=== PATIENT | female | born 1985 | race Caucasian/White ===

== ENCOUNTER 2016-03-01 12:58 | Emergency (ER) | payer MEDICAID, OTHER ==
[2016-03-01] MEDS ORDERED: KETOROLAC 30 MG/ML VIAL (J1885) As Ordered ONE (14:35)
--- NOTE | 2016-03-01 14:48 | REP ---
Chest x-ray: Two views. History: Cough and chest pain . Comparison study: No comparisons . Findings: The lungs are well inflated and free of infiltrate. The pleural angles are sharp. The heart size is normal. Pulmonary vasculature is not increased. No significant bony abnormality is seen. Impression: Negative chest x-ray. Signed by Samuel Bernardo MD 03/01/2016 02:38 P
--- NOTE | 2016-03-01 15:13 | EDDOCDS ---
Nurse's Notes [facility] Name: Agnes Luque Age: 30 yrs Sex: Female : 1985 Arrival Date: 03/01/2016 Time: 12:58 Bed I2 / M2 Private MD: NO PRIMARY PHYSICIAN, . Diagnosis: Acute upper respiratory infection, unspecified-viral;Other chest pain-chest wall pain Presentation: 03/01 13:00 Presenting complaint: Patient states: Congested cough for 2 weeks, right side rib pain dwg with cough or deep breath. Also having sore throat. Adult Sepsis Screening: The patient does not have new or worsening altered mentation. Patient's respiratory rate is less than 22. Systolic blood pressure is greater than 100. Patient has a qSOFA score of 0- Negative Sepsis Screen. Suicide/Homicide risk assessment- the patient denies having any suicidal and/or homicidal ideations and does not present with any other emotional, behavioral or mental health complaints. 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 Transition of care: patient was not received from another setting of care. 13:00 Acuity: HELIO Level 5 dwg 13:00 Method Of Arrival: Walkin/Carried/Asstd dwg Triage Assessment: 13:01 General: Appears in no apparent distress. Pain: Pain currently is 10 out of 10 on a dwg pain scale. HIV screening NA for this visit Offered previously. 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 none - PMHx: none; - PSHx: Appendectomy; - Social history: Smoking status: Patient states former smoker of tobacco. No barriers to communication noted, The patient speaks fluent Indian. - Family history: Not pertinent. - : The pt / caregiver states he / she is not on anticoagulants. Home medication list is obtained from the patient. - Exposure Risk Screening:: None identified. Screenin:10 Screening information is obtained from the patient. Fall risk: No risks identified. kc3 Assistance ADL's: requires no assistance with activities of daily living. Abuse/DV Screen: The patient / caregiver reports he/she is: not in a situation that causes fear, pain or injury. Nutritional screening: No deficits noted. Advance Directives: Currently, there is no health care proxy. home support is adequate. Assessment: 13:50 General: Appears in no apparent distress, Behavior is appropriate for age, cooperative. dsf Pain: Location: right rib area Pain currently is 10 out of 10 on a pain scale. Quality of pain is described as sharp. Neurological: Level of Consciousness is awake, alert, Oriented to person, place, time. EENT: Reports nasal congestion since 2 weeks ago. Cardiovascular: Capillary refill < 3 seconds Heart tones S1 S2 present. Respiratory: Airway is patent Respiratory effort is even, unlabored, Respiratory pattern is regular, symmetrical, Breath sounds are clear bilaterally. Reports pain with respiration. GI: Abdomen is non- distended Bowel sounds present X 4 quads. Abd is soft and non tender X 4 quads. Derm: Skin is pink, warm & dry. 15:10 General: Appears in no apparent distress, comfortable, Behavior is appropriate for age, kc3 cooperative. Pain: Location: right rib area Pain currently is 10 out of 10 on a pain scale. Neurological: Level of Consciousness is awake, alert, obeys commands, Oriented to person, place, time. Respiratory: Respiratory effort is even, unlabored. Derm: Skin is pink, warm & dry. Vital Signs: 12:59 BP 149 / 91; Pulse 104; Resp 16; Temp 96.3(O); Pulse Ox 100% ; Weight 79.38 kg; Height cmb 5 ft. 4 in. (162.56 cm); Pain 10/10; 15:11 BP 148 / 91; Pulse 85; Resp 18; Temp 98.5(O); Pulse Ox 97% on R/A; Pain 10/10; kc3 12:59 Body Mass Index 30.04 (79.38 kg, 162.56 cm) cmb Vitals: 12:59 Log In Time: March 01, 2016 at 12:57. cmb 14:29 Strep Screen is obtained and tested: Negative, a GATSNEG culture is ordered in [facility] and sent. ED Course: 12:59 Patient visited by Janki Marte. cmb 12:59 NO PRIMARY PHYSICIAN, . is Private Physician. cmb 12:59 Patient moved to Waiting cmb 13:00 Patient moved to Pre RCE cmb 13:01 Triage Initiated dwg 13:29 Meli Conner FNP is PHCP. le 13:30 Patient moved to I1 / M1 srm 13:31 Patient moved to I2 / M2 srm 13:52 Patient visited by Ijeoma Lucas RN. dsf 14:15 Patient visited by Meli Conner FNP. le 14:40 GATS (NEGATIVE STREP SCREEN) Sent. dsf 14:53 [facility] is Referral Physician. le 14:53 Chest, 2 View (pa\E\lat) Returned. EDMS 15:05 [facility] Payment Agreement was scanned into [employer] and attached to record. mm15 15:12 The patient / caregiver is instructed regarding the plan of care and ED course. kc3 15:12 No IV's were initiated during this patient's visit. No procedures done that require kc3 assistance. Administered Medications: 14:40 Drug: ketorolac 60 mg [ketorolac 30 mg/mL (1 mL) injection solution (2 mL)] Route: IM; dsf Site: right gluteus; Order Results: Radiology Order: Chest, 2 View (pa\E\lat) Test: Chest, 2 View (pa\E\lat) REASON FOR EXAMINATION: Cough;Chest Pain; Chest x-ray: Two views.; ; History: Cough and chest pain .; ; Comparison study: No comparisons .; ; Findings: The lungs are well inflated and free of infiltrate. The pleural; angles are sharp. The heart size is normal. Pulmonary vasculature is not; increased. No significant bony abnormality is seen.; ; Impression:; ; Negative chest x-ray.; ; ; Signed by; Samuel Bernardo MD 03/01/2016 02:38 P; Outcome: 14:53 Discharge ordered by Provider. le 15:11 Discharge Assessment: Patient awake, alert and oriented x 3. No cognitive and/or kc3 functional deficits noted. Patient verbalized understanding of disposition instructions. patient administered narcotics - no. The following High Risk Discharge criteria are identified: None. Discharged to home. Condition: stable. Discharge instructions given to patient, Instructed on discharge instructions, follow up and referral plans. medication usage, Demonstrated understanding of instructions, medications, Pt was receptive of discharge instructions/ teaching. Prescriptions given X 1. No special radiology studies were completed. Property :Personal belongings accompany Pt. 15:12 Patient left the ED. kc3 Signatures: [facility] Rico Bowling RN RN dwg Michelson, Staci, RN RN Meli Jiménez, PEER HEALTH PROMOTER PEER HEALTH PROMOTER Ijeoma Burgos,RN RN Janki Hutchison Marlynn mm15 Melita Gordon,RN RN kc3 MTDD
--- NOTE | 2016-03-01 15:13 | EDDOCDS ---
Physician Documentation [facility] Name: Agnes Luque Age: 30 yrs Sex: Female : 1985 Arrival Date: 03/01/2016 Time: 12:58 Bed I2 / M2 Private MD: NO PRIMARY PHYSICIAN, . Disposition: 03/01/16 14:53 Discharged to Home/Self Care. Impression: Acute upper respiratory infection, unspecified - viral, Other chest pain - chest wall pain. - Condition is Stable. - Discharge Instructions: Costochondritis, Upper Respiratory Infection, Adult, Viral Infections. - Prescriptions for Naprosyn 500 mg Oral Tablet - take 1 tablet by ORAL route 2 times per day take with food; 30 tablet. - Medication Reconciliation, Local Pharmacy Hours form. - Follow up: [facility]; When: Call to arrange an appointment; Reason: Recheck today's complaints, Continuance of care, To establish care. - Problem is an ongoing problem. - Symptoms have improved. - Notes: Use the naprosyn, routinely, for chest wall pain. You can safely, also, use Tylenol as needed Continue to use Muciness or robitussin to keep secretions thinned out Return to the ED for fever, shortness of breath or any other concerns Historical: - Allergies: no known allergies; - Home Meds: 1. none - PMHx: none; - PSHx: Appendectomy; - Social history: Smoking status: Patient states former smoker of tobacco. No barriers to communication noted, The patient speaks fluent Korean. - Family history: Not pertinent. - : The pt / caregiver states he / she is not on anticoagulants. Home medication list is obtained from the patient. - Exposure Risk Screening:: None identified. 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 4 in. (162.56 cm); Pain 10/10; 15:11 BP 148 / 91; Pulse 85; Resp 18; Temp 98.5(O); Pulse Ox 97% on R/A; Pain 10/10; kc3 12:59 Body Mass Index 30.04 (79.38 kg, 162.56 cm) cmb MDM: 14:15 Strep Screen, Nursing ordered. le 14:17 Chest, 2 View (pa\E\lat) Ordered. EDMS 14:22 ketorolac 60 mg IM once ordered. le 14:30 GATS (NEGATIVE STREP SCREEN) Ordered. EDMS 15:04 Financial registration complete. mm15 15:05 [facility] Payment Agreement was scanned into [employer] and attached to record. mm15 Administered Medications: 14:40 Drug: ketorolac 60 mg [ketorolac 30 mg/mL (1 mL) injection solution (2 mL)] Route: IM; dsf Site: right gluteus; Signatures: Dispatcher [employer] EDMS Rico Bowling, RN RN Meli Ortiz FNP FNP le McGrath, Marlynn mm15 Melita Gordon,RN RN isis3 Ijeoma Lucas RN dsf The chart was reviewed and I authenticate all verbal orders and agree with the evaluation and treatment provided.Attachments: 15:05 [facility] Payment Agreement mm15 MTDD
--- NOTE | 2016-03-03 16:13 | EDDOCDS ---
Physician Documentation [facility] Name: Agnes Luque Age: 30 yrs Sex: Female : 1985 Arrival Date: 03/01/2016 Time: 12:58 Bed I2 / M2 Private MD: NO PRIMARY PHYSICIAN, . Disposition: 03/01/16 14:53 Discharged to Home/Self Care. Impression: Acute upper respiratory infection, unspecified - viral, Other chest pain - chest wall pain. - Condition is Stable. - Discharge Instructions: Costochondritis, Upper Respiratory Infection, Adult, Viral Infections. - Prescriptions for Naprosyn 500 mg Oral Tablet - take 1 tablet by ORAL route 2 times per day take with food; 30 tablet. - Medication Reconciliation, Local Pharmacy Hours form. - Follow up: [facility]; When: Call to arrange an appointment; Reason: Recheck today's complaints, Continuance of care, To establish care. - Problem is an ongoing problem. - Symptoms have improved. - Notes: Use the naprosyn, routinely, for chest wall pain. You can safely, also, use Tylenol as needed Continue to use Muciness or robitussin to keep secretions thinned out Return to the ED for fever, shortness of breath or any other concerns Historical: - Allergies: no known allergies; - Home Meds: 1. none - PMHx: none; - PSHx: Appendectomy; - Social history: Smoking status: Patient states former smoker of tobacco. No barriers to communication noted, The patient speaks fluent Lao. - Family history: Not pertinent. - : The pt / caregiver states he / she is not on anticoagulants. Home medication list is obtained from the patient. - Exposure Risk Screening:: None identified. 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 4 in. (162.56 cm); Pain 10/10; 15:11 BP 148 / 91; Pulse 85; Resp 18; Temp 98.5(O); Pulse Ox 97% on R/A; Pain 10/10; kc3 12:59 Body Mass Index 30.04 (79.38 kg, 162.56 cm) cmb MDM: 14:15 Strep Screen, Nursing ordered. le 14:17 Chest, 2 View (pa\E\lat) Ordered. EDMS 14:22 ketorolac 60 mg IM once ordered. le 14:30 GATS (NEGATIVE STREP SCREEN) Ordered. EDMS 15:04 Financial registration complete. mm15 15:05 [facility] Agreement was scanned into [employer] and attached to record. 15 03/02 10:59 T-Sheet-- Draft Copy was scanned into [employer] and attached to record. gb Administered Medications: 03/01 14:40 Drug: ketorolac 60 mg [ketorolac 30 mg/mL (1 mL) injection solution (2 mL)] Route: IM; dsf Site: right gluteus; Signatures: Dispatcher [employer] EDRico Sosa, RN RN dwg Maribel Abdullahi, Reg Reg gb Meli Conner, BEER BREWER BEER BREWER Ana Martinez mm15 Melita Gordon RN RN kc3 Ijeoma Lucas RN dsf The chart was reviewed and I authenticate all verbal orders and agree with the evaluation and treatment provided.Attachments: 15:05 [facility] Payment Agreement 15 03/02 10:59 T-Sheet-- Draft Copy gb Chart Complete MTDD
--- NOTE | 2016-03-03 16:13 | EDDOCDS ---
Nurse's Notes [facility] Name: Agnes Luque Age: 30 yrs Sex: Female : 1985 Arrival Date: 03/01/2016 Time: 12:58 Bed I2 / M2 Private MD: NO PRIMARY PHYSICIAN, . Diagnosis: Acute upper respiratory infection, unspecified-viral;Other chest pain-chest wall pain Presentation: 03/01 13:00 Presenting complaint: Patient states: Congested cough for 2 weeks, right side rib pain dwg with cough or deep breath. Also having sore throat. Adult Sepsis Screening: The patient does not have new or worsening altered mentation. Patient's respiratory rate is less than 22. Systolic blood pressure is greater than 100. Patient has a qSOFA score of 0- Negative Sepsis Screen. Suicide/Homicide risk assessment- the patient denies having any suicidal and/or homicidal ideations and does not present with any other emotional, behavioral or mental health complaints. Status: Patient is not a ambulatory service representative or dependent. Transition of care: patient was not received from another setting of care. 13:00 Acuity: HELOI Level 5 dwg 13:00 Method Of Arrival: Walkin/Carried/Asstd dwg Triage Assessment: 13:01 General: Appears in no apparent distress. Pain: Pain currently is 10 out of 10 on a dwg pain scale. HIV screening NA for this visit Offered previously. 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 none - PMHx: none; - PSHx: Appendectomy; - Social history: Smoking status: Patient states former smoker of tobacco. No barriers to communication noted, The patient speaks fluent Ukrainian. - Family history: Not pertinent. - : The pt / caregiver states he / she is not on anticoagulants. Home medication list is obtained from the patient. - Exposure Risk Screening:: None identified. Screenin:10 Screening information is obtained from the patient. Fall risk: No risks identified. kc3 Assistance ADL's: requires no assistance with activities of daily living. Abuse/DV Screen: The patient / caregiver reports he/she is: not in a situation that causes fear, pain or injury. Nutritional screening: No deficits noted. Advance Directives: Currently, there is no health care proxy. home support is adequate. Assessment: 13:50 General: Appears in no apparent distress, Behavior is appropriate for age, cooperative. dsf Pain: Location: right rib area Pain currently is 10 out of 10 on a pain scale. Quality of pain is described as sharp. Neurological: Level of Consciousness is awake, alert, Oriented to person, place, time. EENT: Reports nasal congestion since 2 weeks ago. Cardiovascular: Capillary refill < 3 seconds Heart tones S1 S2 present. Respiratory: Airway is patent Respiratory effort is even, unlabored, Respiratory pattern is regular, symmetrical, Breath sounds are clear bilaterally. Reports pain with respiration. GI: Abdomen is non- distended Bowel sounds present X 4 quads. Abd is soft and non tender X 4 quads. Derm: Skin is pink, warm & dry. 15:10 General: Appears in no apparent distress, comfortable, Behavior is appropriate for age, kc3 cooperative. Pain: Location: right rib area Pain currently is 10 out of 10 on a pain scale. Neurological: Level of Consciousness is awake, alert, obeys commands, Oriented to person, place, time. Respiratory: Respiratory effort is even, unlabored. Derm: Skin is pink, warm & dry. Vital Signs: 12:59 BP 149 / 91; Pulse 104; Resp 16; Temp 96.3(O); Pulse Ox 100% ; Weight 79.38 kg; Height cmb 5 ft. 4 in. (162.56 cm); Pain 10/10; 15:11 BP 148 / 91; Pulse 85; Resp 18; Temp 98.5(O); Pulse Ox 97% on R/A; Pain 10/10; kc3 12:59 Body Mass Index 30.04 (79.38 kg, 162.56 cm) cmb Vitals: 12:59 Log In Time: March 01, 2016 at 12:57. cmb 14:29 Strep Screen is obtained and tested: Negative, a GATSNEG culture is ordered in [facility] and sent. ED Course: 12:59 Patient visited by Janki Marte. cmb 12:59 NO PRIMARY PHYSICIAN, . is Private Physician. cmb 12:59 Patient moved to Waiting cmb 13:00 Patient moved to Pre RCE cmb 13:01 Triage Initiated dwg 13:29 Meli Conner FNP is PHCP. le 13:30 Patient moved to I1 / M1 srm 13:31 Patient moved to I2 / M2 srm 13:52 Patient visited by Ijeoma Lucas RN. dsf 14:15 Patient visited by Meli Conner FNP. le 14:40 GATS (NEGATIVE STREP SCREEN) Sent. dsf 14:53 [facility] is Referral Physician. le 14:53 Chest, 2 View (pa\E\lat) Returned. EDMS 15:05 [facility] Payment Agreement was scanned into [employer] and attached to record. mm15 15:12 The patient / caregiver is instructed regarding the plan of care and ED course. kc3 15:12 No IV's were initiated during this patient's visit. No procedures done that require kc3 assistance. 16:11 Patient name changed from Agnes\S\V\S\Rebel\S\ to Agnes\S\Evelyn\S\Rebel. EDMS 03/02 10:59 T-Sheet-- Draft Copy was scanned into [employer] and attached to record. gb Administered Medications: 03/01 14:40 Drug: ketorolac 60 mg [ketorolac 30 mg/mL (1 mL) injection solution (2 mL)] Route: IM; dsf Site: right gluteus; Order Results: Lab Order: GATS (NEGATIVE STREP SCREEN); SPEC'M 03/01/16 14:39 Test: GATS CULTURE (NEG STREP SCR); Value: GATS RESULT NEGATIVE FOR STREP PYOGENES (GROUP A); Status: F Radiology Order: Chest, 2 View (pa\E\lat) Test: Chest, 2 View (pa\E\lat) REASON FOR EXAMINATION: Cough;Chest Pain; Chest x-ray: Two views.; ; History: Cough and chest pain .; ; Comparison study: No comparisons .; ; Findings: The lungs are well inflated and free of infiltrate. The pleural; angles are sharp. The heart size is normal. Pulmonary vasculature is not; increased. No significant bony abnormality is seen.; ; Impression:; ; Negative chest x-ray.; ; ; Signed by; Samuel Bernardo MD 03/01/2016 02:38 P; Outcome: 14:53 Discharge ordered by Provider. le 15:11 Discharge Assessment: Patient awake, alert and oriented x 3. No cognitive and/or kc3 functional deficits noted. Patient verbalized understanding of disposition instructions. patient administered narcotics - no. The following High Risk Discharge criteria are identified: None. Discharged to home. Condition: stable. Discharge instructions given to patient, Instructed on discharge instructions, follow up and referral plans. medication usage, Demonstrated understanding of instructions, medications, Pt was receptive of discharge instructions/ teaching. Prescriptions given X 1. No special radiology studies were completed. Property :Personal belongings accompany Pt. 15:12 Patient left the ED. kc3 Signatures: Dispatcher Med[employer] EDRico Sosa, RN RN Mer Hatch RN RN [facility] Maribel Abdullahi, Reg Reg gb eMli Conner, HARBOR PILOT HARBOR PILOT Ijeoma BurgosRN RN Janki Hutchison Marlynn mm15 Melita Gordon,RN RN kc3 Chart Complete MTDD
--- NOTE | 2016-03-03 16:13 | EDDOCDS ---
Physician Documentation [facility] Name: Agnes Luque Age: 30 yrs Sex: Female : 1985 Arrival Date: 03/01/2016 Time: 12:58 Bed I2 / M2 Private MD: NO PRIMARY PHYSICIAN, . Disposition: 03/01/16 14:53 Discharged to Home/Self Care. Impression: Acute upper respiratory infection, unspecified - viral, Other chest pain - chest wall pain. - Condition is Stable. - Discharge Instructions: Costochondritis, Upper Respiratory Infection, Adult, Viral Infections. - Prescriptions for Naprosyn 500 mg Oral Tablet - take 1 tablet by ORAL route 2 times per day take with food; 30 tablet. - Medication Reconciliation, Local Pharmacy Hours form. - Follow up: [facility]; When: Call to arrange an appointment; Reason: Recheck today's complaints, Continuance of care, To establish care. - Problem is an ongoing problem. - Symptoms have improved. - Notes: Use the naprosyn, routinely, for chest wall pain. You can safely, also, use Tylenol as needed Continue to use Muciness or robitussin to keep secretions thinned out Return to the ED for fever, shortness of breath or any other concerns Historical: - Allergies: no known allergies; - Home Meds: 1. none - PMHx: none; - PSHx: Appendectomy; - Social history: Smoking status: Patient states former smoker of tobacco. No barriers to communication noted, The patient speaks fluent Chinese. - Family history: Not pertinent. - : The pt / caregiver states he / she is not on anticoagulants. Home medication list is obtained from the patient. - Exposure Risk Screening:: None identified. 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 4 in. (162.56 cm); Pain 10/10; 15:11 BP 148 / 91; Pulse 85; Resp 18; Temp 98.5(O); Pulse Ox 97% on R/A; Pain 10/10; kc3 12:59 Body Mass Index 30.04 (79.38 kg, 162.56 cm) cmb MDM: 14:15 Strep Screen, Nursing ordered. le 14:17 Chest, 2 View (pa\E\lat) Ordered. EDMS 14:22 ketorolac 60 mg IM once ordered. le 14:30 GATS (NEGATIVE STREP SCREEN) Ordered. EDMS 15:04 Financial registration complete. mm15 15:05 [facility] Payment Agreement was scanned into [employer] and attached to record. 15 03/02 10:59 T-Sheet-- Draft Copy was scanned into [employer] and attached to record. gb Administered Medications: 03/01 14:40 Drug: ketorolac 60 mg [ketorolac 30 mg/mL (1 mL) injection solution (2 mL)] Route: IM; dsf Site: right gluteus; Signatures: Dispatcher [employer] EDRico Sosa, RN RN dwg Maribel Abdullahi, Reg Reg gb Meli Conner, BEHAVIORAL SCIENCES DEPARTMENT CHAIR BEHAVIORAL SCIENCES DEPARTMENT CHAIR Ana Martinez mm15 Melita Gordon RN RN kc3 Ijeoma Lucas RN dsf The chart was reviewed and I authenticate all verbal orders and agree with the evaluation and treatment provided.Attachments: 15:05 [facility] Payment Agreement 15 03/02 10:59 T-Sheet-- Draft Copy gb Chart Complete MTDD
== END 2016-03-01 15:12 | disposition home or self-care (01) ==
LOC: M ED 12:58
DX: J06.9 Acute upper respiratory infection, unspecified (principal); R07.89 Other chest pain; Z87.891 Personal history of nicotine dependence

== ENCOUNTER 2016-03-06 19:19 | Emergency (ER) | payer OTHER ==
[2016-03-06] MEDS ORDERED: NORCO, ANEXSIA 5/325MG TABLET (HYDROcodone/ACETAMINOPHEN) As Ordered ONE (22:08)
[2016-03-06] MEDS ORDERED: METHOCARBAMOL 500 MG TAB As Ordered ONE ×2 (22:50→22:54)
--- NOTE | 2016-03-06 23:01 | EDDOCDS ---
Physician Documentation [facility] Name: Agnes Luque Age: 30 yrs Sex: Female : 1985 Arrival Date: 03/06/2016 Time: 19:19 Bed PR Private MD: NO PRIMARY PHYSICIAN, . Disposition: 03/06/16 22:36 Discharged to Home/Self Care. Impression: Unspecified superficial injuries of right front wall of thorax - strain of muscle. - Condition is Stable. - Discharge Instructions: Chest Wall Pain, Muscle Strain. - Prescriptions for [place] 5- 325 mg Oral Tablet - take 1 tablet by ORAL route every 6 hours As needed MDD: 4 tabs; 20 tablet. Robaxin 500 mg Oral Tablet - take 2 tablet by ORAL route every 6 hours As needed; 40 tablet. - Work Release Form - 2 day, Medication Reconciliation, Local Pharmacy Hours form. - Follow up: Private Physician; When: Call to arrange an appointment; Reason: Recheck today's complaints, Continuance of care. - Problem is new. - Symptoms are unchanged. Historical: - Allergies: No known drug Allergies; - Home Meds: 1. Zofran (as hydrochloride) 4 mg Oral tab as needed (Last dose: 03/06/2016 19:00) - PMHx: none; - PSHx: Appendectomy; - Social history: Smoking status: Patient states was never smoker of tobacco. Patient uses marijuana, almost daily, No barriers to communication noted. - Family history: Not pertinent. - : The pt / caregiver states he / she is not on anticoagulants. Home medication list is obtained from the patient. - Exposure Risk Screening:: None identified. 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 4 in. (162.56 cm) (R); Pain 9/10; 22:58 BP 121 / 72; Pulse 74; Resp 16; Temp 97.9(TE); Pulse Ox 98% on R/A; jo3 19:21 Body Mass Index 30.04 (79.38 kg, 162.56 cm) gr2 MDM: 22:01 HYDROcodone-acetaminophen 5 mg-325 mg 1 tabs PO once ordered. mo1 22:02 Rib Unilat W/PA Chest Only Ordered. EDMS 22:09 Financial registration complete. gb 22: [facility] Payment Agreement was scanned into [employer] and attached to record. gb 22:49 Methocarbamol 1 grams PO once ordered. mo1 Administered Medications: 22:10 Drug: HYDROcodone-acetaminophen 1 tabs [hydrocodone 5 mg-acetaminophen 325 mg tablet (1 jf3 tabs)] Route: PO; 22:58 Drug: Methocarbamol 1 grams [methocarbamol 500 mg tablet (2 tabs)] Route: PO; jo3 Signatures: Dispatcher [employer] EDMS Maribel Abdullahi, Jer Reg Carmelita Benton RN RN jo3 Debbie Gauthier RN RN [facility] Corby Butts PA PA mo1 Willis Mohan RN jf3 The chart was reviewed and I authenticate all verbal orders and agree with the evaluation and treatment provided.Attachments: 22:09 [facility] Payment Agreement gb MTDD
--- NOTE | 2016-03-06 23:01 | EDDOCDS ---
Nurse's Notes [facility] Name: Agnes Luque Age: 30 yrs Sex: Female : 1985 Arrival Date: 03/06/2016 Time: 19:19 Bed PR Private MD: NO PRIMARY PHYSICIAN, . Diagnosis: Unspecified superficial injuries of right front wall of thorax-strain of muscle Presentation: 03/06 19:44 Presenting complaint: Patient states: I've been sick and have a cough for about three [facility] weeks today when coughing felt something pull in ribs now in severe pain, was treated here last week for something similar. Adult Sepsis Screening: The patient does not have new or worsening altered mentation. Patient's respiratory rate is less than 22. Systolic blood pressure is greater than 100. Patient has a qSOFA score of 0- Negative Sepsis Screen. Suicide/Homicide risk assessment- the patient denies having any suicidal and/or homicidal ideations and does not present with any other emotional, behavioral or mental health complaints. 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 Transition of care: patient was not received from another setting of care. 19:44 Acuity: HELIO Level 4 [facility] 19:44 Method Of Arrival: Walkin/Carried/Asstd [facility] Triage Assessment: 19:48 General: Appears uncomfortable, Behavior is cooperative, crying. Pain: Location: [facility] anterior aspect of right lateral abdomen Pain currently is 10 out of 10 on a pain scale. HIV screening NA for this visit Offered previously. Respiratory: Airway is patent Respiratory effort is even, unlabored, Respiratory pattern is regular, symmetrical, Reports cough that is productive. Derm: Skin is pink, warm & dry. 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 Zofran (as hydrochloride) 4 mg Oral tab as needed (Last dose: 03/06/2016 19:00) - PMHx: none; - PSHx: Appendectomy; - Social history: Smoking status: Patient states was never smoker of tobacco. Patient uses marijuana, almost daily, No barriers to communication noted. - Family history: Not pertinent. - : The pt / caregiver states he / she is not on anticoagulants. Home medication list is obtained from the patient. - Exposure Risk Screening:: None identified. Screenin:58 Screening information is obtained from the patient. Fall risk: No risks identified. jo3 Assistance ADL's: requires no assistance with activities of daily living. Abuse/DV Screen: The patient / caregiver reports he/she is: not in a situation that causes fear, pain or injury. Nutritional screening: No deficits noted. Advance Directives: There is no active DNR order. home support is adequate. Assessment: 22:58 General: Appears uncomfortable, Behavior is appropriate for age, cooperative, pleasant. jo3 Neurological: No deficits noted. Level of Consciousness is awake, alert, Oriented to person, place, time. Respiratory: No deficits noted. Airway is patent Respiratory effort is even, unlabored. Derm: Skin is pink, warm & dry. Vital Signs: 19:21 BP 134 / 83; Pulse 99; Resp 18 S; Temp 96.4(O); Pulse Ox 98% on R/A; Weight 79.38 kg gr2 (R); Height 5 ft. 4 in. (162.56 cm) (R); Pain 9/10; 22:58 BP 121 / 72; Pulse 74; Resp 16; Temp 97.9(TE); Pulse Ox 98% on R/A; jo3 19:21 Body Mass Index 30.04 (79.38 kg, 162.56 cm) gr2 Vitals: 19:21 Log In Time: March 06, 2016 at 19:21. gr2 ED Course: 19:20 Patient visited by Emil Dueñas. gr2 19:20 Patient moved to Waiting gr2 19:21 NO PRIMARY PHYSICIAN, . is Private Physician. gr2 19:22 Patient visited by Emil Dueñas. gr2 19:22 Patient moved to Pre RCE gr2 19:46 Triage Initiated cj 21:25 Patient moved to Triage 2 jo3 21:36 Corby Butts PA is PHCP. mo1 21:36 Silver Rich DO is Attending Physician. mo1 21:57 Patient visited by Corby Butts PA. mo1 22:04 Patient moved to Radiology reyna 22:09 [facility] Payment Agreement was scanned into [employer] and attached to record. gb 22:09 Patient moved to TR1 jf3 22:10 Patient moved to Radiology reyna 22:30 Patient moved to PR1 / 25 sew 22:58 The patient / caregiver is instructed regarding the plan of care and ED course. jo3 22:58 No IV's were initiated during this patient's visit. No procedures done that require jo3 assistance. Administered Medications: 22:10 Drug: HYDROcodone-acetaminophen 1 tabs [hydrocodone 5 mg-acetaminophen 325 mg tablet (1 jf3 tabs)] Route: PO; 22:58 Drug: Methocarbamol 1 grams [methocarbamol 500 mg tablet (2 tabs)] Route: PO; jo3 Order Results: There are currently no results for this order. Outcome: 22:36 Discharge ordered by Provider. mo1 23:00 Patient left the ED. jo3 Signatures: Jovanni Christianson Gloria, Carmelita GeeRN RN jo3 Debbie Gauthier RN RN [facility] Melinda Gomez Gainslee gr2 Corby Butts PA PA mo1 Willis Mohan,RN RN jf3 MTDD
--- NOTE | 2016-03-07 01:27 | REP ---
Clinical: Pain with cough . Technique: Frontal view of the chest with multiple views of the right hemithorax. Findings: Frontal view of the chest demonstrates no acute cardiopulmonary process. Multiple views of the right hemithorax demonstrates no obvious acute rib fracture or pathology. Impression: Normal right rib series Signed by Brian Rolon MD 03/07/2016 01:18 A
--- NOTE | 2016-03-09 00:01 | EDDOCDS ---
Physician Documentation [facility] Name: Agnes Luque Age: 30 yrs Sex: Female : 1985 Arrival Date: 03/06/2016 Time: 19:19 Bed PR Private MD: NO PRIMARY PHYSICIAN, . Disposition: 03/06/16 22:36 Discharged to Home/Self Care. Impression: Unspecified superficial injuries of right front wall of thorax - strain of muscle. - Condition is Stable. - Discharge Instructions: Chest Wall Pain, Muscle Strain. - Prescriptions for [place] 5- 325 mg Oral Tablet - take 1 tablet by ORAL route every 6 hours As needed MDD: 4 tabs; 20 tablet. Robaxin 500 mg Oral Tablet - take 2 tablet by ORAL route every 6 hours As needed; 40 tablet. - Work Release Form - 2 day, Medication Reconciliation, Local Pharmacy Hours form. - Follow up: Private Physician; When: Call to arrange an appointment; Reason: Recheck today's complaints, Continuance of care. - Problem is new. - Symptoms are unchanged. Historical: - Allergies: No known drug Allergies; - Home Meds: 1. Zofran (as hydrochloride) 4 mg Oral tab as needed (Last dose: 03/06/2016 19:00) - PMHx: none; - PSHx: Appendectomy; - Social history: Smoking status: Patient states was never smoker of tobacco. Patient uses marijuana, almost daily, No barriers to communication noted. - Family history: Not pertinent. - : The pt / caregiver states he / she is not on anticoagulants. Home medication list is obtained from the patient. - Exposure Risk Screening:: None identified. 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 4 in. (162.56 cm) (R); Pain 9/10; 22:58 BP 121 / 72; Pulse 74; Resp 16; Temp 97.9(TE); Pulse Ox 98% on R/A; jo3 19:21 Body Mass Index 30.04 (79.38 kg, 162.56 cm) gr2 MDM: 22:01 HYDROcodone-acetaminophen 5 mg-325 mg 1 tabs PO once ordered. mo1 22:02 Rib Unilat W/PA Chest Only Ordered. EDMS : Financial registration complete. gb : [facility] Payment Agreement was scanned into [employer] and attached to record. gb 22:49 Methocarbamol 1 grams PO once ordered. mo1 03/07 11:28 T-Sheet-- Draft Copy was scanned into [employer] and attached to record. gb Administered Medications: 03/06 22:10 Drug: HYDROcodone-acetaminophen 1 tabs [hydrocodone 5 mg-acetaminophen 325 mg tablet (1 jf3 tabs)] Route: PO; 22:58 Drug: Methocarbamol 1 grams [methocarbamol 500 mg tablet (2 tabs)] Route: PO; jo3 Signatures: Dispatcher [employer] EDMS Maribel Abdullahi, Jer Reg Carmelita Benton RN RN jo3 Debbie Gauthier RN RN [facility] Corby Butts PA PA mo1 Willis Mohan RN jf3 The chart was reviewed and I authenticate all verbal orders and agree with the evaluation and treatment provided.Attachments: 22: [facility] Payment Agreement gb 03/07 11:28 T-Sheet-- Draft Copy gb Chart Complete MTDD
--- NOTE | 2016-03-09 00:01 | EDDOCDS ---
Nurse's Notes [facility] Name: Agnes Luque Age: 30 yrs Sex: Female : 1985 Arrival Date: 03/06/2016 Time: 19:19 Bed PR Private MD: NO PRIMARY PHYSICIAN, . Diagnosis: Unspecified superficial injuries of right front wall of thorax-strain of muscle Presentation: 03/06 19:44 Presenting complaint: Patient states: I've been sick and have a cough for about three [facility] weeks today when coughing felt something pull in ribs now in severe pain, was treated here last week for something similar. Adult Sepsis Screening: The patient does not have new or worsening altered mentation. Patient's respiratory rate is less than 22. Systolic blood pressure is greater than 100. Patient has a qSOFA score of 0- Negative Sepsis Screen. Suicide/Homicide risk assessment- the patient denies having any suicidal and/or homicidal ideations and does not present with any other emotional, behavioral or mental health complaints. 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 Transition of care: patient was not received from another setting of care. 19:44 Acuity: HELIO Level 4 [facility] 19:44 Method Of Arrival: Walkin/Carried/Asstd [facility] Triage Assessment: 19:48 General: Appears uncomfortable, Behavior is cooperative, crying. Pain: Location: [facility] anterior aspect of right lateral abdomen Pain currently is 10 out of 10 on a pain scale. HIV screening NA for this visit Offered previously. Respiratory: Airway is patent Respiratory effort is even, unlabored, Respiratory pattern is regular, symmetrical, Reports cough that is productive. Derm: Skin is pink, warm & dry. 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 Zofran (as hydrochloride) 4 mg Oral tab as needed (Last dose: 03/06/2016 19:00) - PMHx: none; - PSHx: Appendectomy; - Social history: Smoking status: Patient states was never smoker of tobacco. Patient uses marijuana, almost daily, No barriers to communication noted. - Family history: Not pertinent. - : The pt / caregiver states he / she is not on anticoagulants. Home medication list is obtained from the patient. - Exposure Risk Screening:: None identified. Screenin:58 Screening information is obtained from the patient. Fall risk: No risks identified. jo3 Assistance ADL's: requires no assistance with activities of daily living. Abuse/DV Screen: The patient / caregiver reports he/she is: not in a situation that causes fear, pain or injury. Nutritional screening: No deficits noted. Advance Directives: There is no active DNR order. home support is adequate. Assessment: 22:58 General: Appears uncomfortable, Behavior is appropriate for age, cooperative, pleasant. jo3 Neurological: No deficits noted. Level of Consciousness is awake, alert, Oriented to person, place, time. Respiratory: No deficits noted. Airway is patent Respiratory effort is even, unlabored. Derm: Skin is pink, warm & dry. Vital Signs: 19:21 BP 134 / 83; Pulse 99; Resp 18 S; Temp 96.4(O); Pulse Ox 98% on R/A; Weight 79.38 kg gr2 (R); Height 5 ft. 4 in. (162.56 cm) (R); Pain 9/10; 22:58 BP 121 / 72; Pulse 74; Resp 16; Temp 97.9(TE); Pulse Ox 98% on R/A; jo3 19:21 Body Mass Index 30.04 (79.38 kg, 162.56 cm) gr2 Vitals: 19:21 Log In Time: March 06, 2016 at 19:21. gr2 ED Course: 19:20 Patient visited by Emil Dueñas. gr2 19:20 Patient moved to Waiting gr2 19:21 NO PRIMARY PHYSICIAN, . is Private Physician. gr2 19:22 Patient visited by Emil Dueñas. gr2 19:22 Patient moved to Pre RCE gr2 19:46 Triage Initiated cj 21:25 Patient moved to Triage 2 jo3 21:36 Corby Butts PA is PHCP. mo1 21:36 Silver Rich DO is Attending Physician. mo1 21:57 Patient visited by Corby Butts PA. mo1 22:04 Patient moved to Radiology reyna 22:09 [facility] Payment Agreement was scanned into [employer] and attached to record. gb 22:09 Patient moved to TR1 jf3 22:10 Patient moved to Radiology reyna 22:30 Patient moved to PR1 / 25 sew 22:58 The patient / caregiver is instructed regarding the plan of care and ED course. jo3 22:58 No IV's were initiated during this patient's visit. No procedures done that require jo3 assistance. 03/07 01:43 Rib Unilat W/PA Chest Only Returned. EDMS 11:28 T-Sheet-- Draft Copy was scanned into [employer] and attached to record. gb Administered Medications: 03/06 22:10 Drug: HYDROcodone-acetaminophen 1 tabs [hydrocodone 5 mg-acetaminophen 325 mg tablet (1 jf3 tabs)] Route: PO; 22:58 Drug: Methocarbamol 1 grams [methocarbamol 500 mg tablet (2 tabs)] Route: PO; jo3 Order Results: Radiology Order: Rib Unilat W/PA Chest Only Test: Rib Unilat W/PA Chest Only REASON FOR EXAMINATION: Cough; Clinical: Pain with cough .; ; Technique: Frontal view of the chest with multiple views of the right; hemithorax.; ; Findings:; Frontal view of the chest demonstrates no acute cardiopulmonary process.; Multiple views of the right hemithorax demonstrates no obvious acute rib fracture; or pathology.; ; Impression:; Normal right rib series; ; ; Signed by; Brian Rolon MD 03/07/2016 01:18 A; Outcome: 22:36 Discharge ordered by Provider. mo1 23:00 Patient left the ED. jo3 Signatures: Dispatcher [employer] EDAR Jovanni Christianson Gloria, Jer Reg Carmelita Benton RN RN jo3 Debbie GauthierRN RN Melinda Kim Gainslee 2 Corby Butts PA PA mo1 Willis Mohan,ANDRE RN jf3 Chart Complete MTDD
--- NOTE | 2016-03-09 00:01 | EDDOCDS ---
Physician Documentation [facility] Name: Agnes Luque Age: 30 yrs Sex: Female : 1985 Arrival Date: 03/06/2016 Time: 19:19 Bed PR Private MD: NO PRIMARY PHYSICIAN, . Disposition: 03/06/16 22:36 Discharged to Home/Self Care. Impression: Unspecified superficial injuries of right front wall of thorax - strain of muscle. - Condition is Stable. - Discharge Instructions: Chest Wall Pain, Muscle Strain. - Prescriptions for [place] 5- 325 mg Oral Tablet - take 1 tablet by ORAL route every 6 hours As needed MDD: 4 tabs; 20 tablet. Robaxin 500 mg Oral Tablet - take 2 tablet by ORAL route every 6 hours As needed; 40 tablet. - Work Release Form - 2 day, Medication Reconciliation, Local Pharmacy Hours form. - Follow up: Private Physician; When: Call to arrange an appointment; Reason: Recheck today's complaints, Continuance of care. - Problem is new. - Symptoms are unchanged. Historical: - Allergies: No known drug Allergies; - Home Meds: 1. Zofran (as hydrochloride) 4 mg Oral tab as needed (Last dose: 03/06/2016 19:00) - PMHx: none; - PSHx: Appendectomy; - Social history: Smoking status: Patient states was never smoker of tobacco. Patient uses marijuana, almost daily, No barriers to communication noted. - Family history: Not pertinent. - : The pt / caregiver states he / she is not on anticoagulants. Home medication list is obtained from the patient. - Exposure Risk Screening:: None identified. 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 4 in. (162.56 cm) (R); Pain 9/10; 22:58 BP 121 / 72; Pulse 74; Resp 16; Temp 97.9(TE); Pulse Ox 98% on R/A; jo3 19:21 Body Mass Index 30.04 (79.38 kg, 162.56 cm) gr2 MDM: 22:01 HYDROcodone-acetaminophen 5 mg-325 mg 1 tabs PO once ordered. mo1 22:02 Rib Unilat W/PA Chest Only Ordered. EDMS : Financial registration complete. gb : [facility] Payment Agreement was scanned into [employer] and attached to record. gb 22:49 Methocarbamol 1 grams PO once ordered. mo1 03/07 11:28 T-Sheet-- Draft Copy was scanned into [employer] and attached to record. gb Administered Medications: 03/06 22:10 Drug: HYDROcodone-acetaminophen 1 tabs [hydrocodone 5 mg-acetaminophen 325 mg tablet (1 jf3 tabs)] Route: PO; 22:58 Drug: Methocarbamol 1 grams [methocarbamol 500 mg tablet (2 tabs)] Route: PO; jo3 Signatures: Dispatcher [employer] EDMS Maribel Abdullahi, Jer Reg Carmelita Benton RN RN jo3 Debbie Gauthier RN RN [facility] Corby Butts PA PA mo1 Willis Mohan RN jf3 The chart was reviewed and I authenticate all verbal orders and agree with the evaluation and treatment provided.Attachments: 22: [facility] Payment Agreement gb 03/07 11:28 T-Sheet-- Draft Copy gb Chart Complete MTDD
== END 2016-03-06 23:00 | disposition home or self-care (01) ==
LOC: M ED 19:19
DX: S29.011A Strain of muscle and tendon of front wall of thorax, initial encounter (principal); X50.3XXA Overexertion from repetitive movements, initial encounter; Y92.89 Other specified places as the place of occurrence of the external cause; Y93.89 Activity, other specified; Y99.9 Unspecified external cause status

== ENCOUNTER → 2018-06-13 | Outpatient (CLI) | payer OTHER ==
--- NOTE | 2018-06-14 03:38 | REP ---
Clinical: Nontoxic goiter. Technique: Real time caceres scale and color evaluation using linear high frequency transducer. Findings: The thyroid gland is relatively homogeneous in parenchymal echo texture and essentially normal in size. The isthmus measures 3.2 mm in width. The right lobe measures 5.6 x 1.5 x 1.3 cm and includes three lower pole cysts with small mural nodules measuring 4.6 x 5.2 x 7.5 mm, 6.0 x 6.7 x 7.6 mm, and septated cyst measuring 5.7 x 6.1 x 6.9 mm. The left lobe measures 5.2 x 1.4 x 1.3 cm and includes 5.4 x 4.2 x 3.5 mm mid pole cyst with small mural nodule. 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 Electronically Signed by Brian Rolon MD 06/14/2018 03:29 A
== END ==
LOC: M RAD 11:41
PROVIDERS: ATTEND Family Medicine
DX: E04.9 Nontoxic goiter, unspecified (principal)

== ENCOUNTER → 2018-06-20 | Outpatient (CLI) | payer OTHER ==
[~2018-06-20] MED LIST: ALPR0.25; MECL-86; ONDA8TAB8
--- NOTE | 2018-06-20 14:59 | REP ---
MRI brain without contrast: History: Other peripheral vertigo unspecified. . Comparison study: No comparison study. Technique: Axial and sagittal imaging planes are utilized for T1 and T2-weighted scans. Sequences include spin-echo, fast spin echo, FLAIR, and diffusion weighted sequences. MRI findings: No bony calvarial lesion is seen. Craniocervical junction and upper cervical cord are normal in appearance. There is no MR evidence of significant paranasal sinus disease. No intraorbital abnormality is seen. The lateral, third, and fourth ventricles are normal in size and position. Nick-white differentiation pattern is intact above and below the tentorium. There is no evidence of intracranial hemorrhage. No mass, infarction, extra-axial fluid collection or midline shift is seen. No abnormal white matter lesion is seen. Impression: Negative noncontrast brain MRI study. Electronically Signed by Samuel Bernardo MD 06/20/2018 02:50 P
== END ==
LOC: M RAD 13:19
PROVIDERS: ATTEND Family Medicine
DX: H81.399 Other peripheral vertigo, unspecified ear (principal)

== ENCOUNTER 2018-06-25 13:51 | Emergency (ER) | payer OTHER ==
[~2018-06-25] VITALS: Ht 162.6 cm; Wt 74.1 kg
[2018-06-25] MEDS ORDERED: ALPR0.25 (13:58)
[2018-06-25] MEDS ORDERED: ONDA8TAB8 (13:58)
[2018-06-25] MEDS ORDERED: MECL-86 (13:58)
[2018-06-25 15:47] LABS: HEMATOCRIT 41.6 % (36.0-47.0); HEMOGLOBIN 14.9 g/dl (12.0-15.5); MEAN CORPUSCULAR HEMOGLOBIN 36.8 pg (27.0-33.0); MEAN CORPUSCULAR HGB CONC 35.8 g/dl (32.0-36.5); MEAN CORPUSCULAR VOLUME 102.7 fl (80.0-96.0); PLATELET COUNT, AUTOMATED 144 10^3/uL (150-450); RED BLOOD COUNT 4.05 10^6/uL (4.00-5.40); WHITE BLOOD COUNT 5.5 10^3/uL (4.0-10.0)
[2018-06-25 15:55] LABS: AMPHETAMINES LEVEL URINE NEGATIVE (NEGATIVE); BARBITURATES URINE NEGATIVE (NEGATIVE); BENZODIAZEPINES URINE POSITIVE (NEGATIVE); CANNABINOIDS URINE POSITIVE (NEGATIVE); COCAINE METABOLITE URINE NEGATIVE (NEGATIVE); METHADONE URINE NEGATIVE (NEGATIVE); OPIATES URINE NEGATIVE (NEGATIVE); PHENCYCLIDINE URINE NEGATIVE (NEGATIVE)
[2018-06-25 16:03] LABS: BLOOD UREA NITROGEN 8 MG/DL (7-18); CALCIUM LEVEL 8.4 MG/DL (8.5-10.1); CARBON DIOXIDE LEVEL 27 MEQ/L (21-32); CHLORIDE LEVEL 104 MEQ/L (98-107); CREATININE FOR GFR 0.78 MG/DL (0.55-1.30); GLOMERULAR FILTRATION RATE > 60.0 (>60); GLUCOSE, FASTING 120 MG/DL (70-100); POTASSIUM SERUM 4.2 MEQ/L (3.5-5.1); SODIUM LEVEL 140 MEQ/L (136-145)
[2018-06-25 16:19] LABS: ETHYL ALCOHOL (ETHANOL) 0.256 % (0.000-0.010)
[2018-06-25] MEDS ORDERED: MECLIZINE 25 MG TABLET PO ONE (17:15)
[2018-06-25 17:17] VITALS: BP 147/104
== END 2018-06-25 17:29 | disposition home or self-care (01) ==
LOC: M ED 13:51
DX: R42 Dizziness and giddiness (principal); H93.13 Tinnitus, bilateral; I10 Essential (primary) hypertension; Z88.0 Allergy status to penicillin; Z88.1 Allergy status to other antibiotic agents; Z88.2 Allergy status to sulfonamides; Z88.8 Allergy status to other drugs, medicaments and biological substances
CPT/HCPCS: 36415; 80048; 80307; 81001; 85027; 99284; G0480

== ENCOUNTER 2019-04-30 07:47 | Inpatient (IN) | payer OTHER ==
[~2019-04-30] VITALS: Ht 162.6 cm; Wt 72.7 kg
[2019-04-30] MEDS ORDERED: LEXA5TAB13 (08:02)
[2019-04-30] MEDS ORDERED: VITA100T28 (08:02)
[2019-04-30] MEDS ORDERED: HYDR50TA70 (08:02)
[2019-04-30] MEDS ORDERED: AMLO5TAB6 (08:02)
[2019-04-30] MEDS ORDERED: PANT40TA3 (08:02)
[2019-04-30 08:32] LABS: HEMATOCRIT 40.2 % (36.0-47.0); HEMOGLOBIN 13.6 g/dl (12.0-15.5); MEAN CORPUSCULAR HEMOGLOBIN 31.2 pg (27.0-33.0); MEAN CORPUSCULAR HGB CONC 33.8 g/dl (32.0-36.5); MEAN CORPUSCULAR VOLUME 92.2 fl (80.0-96.0); PLATELET COUNT, AUTOMATED 138 10^3/uL (150-450); RED BLOOD COUNT 4.36 10^6/uL (4.00-5.40)
--- NOTE | 2019-04-30 08:54 | REP ---
Right hand series: Four views. History: Trauma. Findings: Four views right hand demonstrate moderate soft tissue swelling dorsally over the metacarpals. No fracture is visible. Bones joints soft tissues are otherwise unremarkable. Impression: Moderate dorsal soft tissue swelling over the metacarpals. No fracture seen. Electronically Signed by Samuel Bernardo MD 04/30/2019 08:46 A
[2019-04-30 09:02] LABS: ACETAMINOPHEN LEVEL < 2.0 UG/ML (10.0-30.0); ALBUMIN 3.8 GM/DL (3.2-5.2); ALT/SGPT 78 U/L (12-78); BILIRUBIN,DIRECT 0.2 MG/DL (0.0-0.2); BILIRUBIN,TOTAL 0.3 MG/DL (0.2-1.0); BLOOD UREA NITROGEN 7 MG/DL (7-18); CALCIUM LEVEL 8.6 MG/DL (8.5-10.1); CARBON DIOXIDE LEVEL 23 MEQ/L (21-32); CHLORIDE LEVEL 102 MEQ/L (98-107); CREATININE FOR GFR 0.81 MG/DL (0.55-1.30); GLOMERULAR FILTRATION RATE > 60.0 (>60); GLUCOSE, FASTING 117 MG/DL (70-100); POTASSIUM SERUM 3.8 MEQ/L (3.5-5.1); SALICYLATE LEVEL < 1.7 MG/DL (5.0-30.0); SODIUM LEVEL 142 MEQ/L (136-145); TOTAL PROTEIN 7.8 GM/DL (6.4-8.2)
[2019-04-30 09:49] LABS: HCG, SERUM QUALITATIVE NEGATIVE (NEGATIVE)
[2019-04-30] MEDS ORDERED: hydrOXYzine 50 MG TAB PO ONE (11:00)
[2019-04-30] MEDS ORDERED: amLODIPine 5 MG TAB PO ONE (11:00)
[2019-04-30] MEDS ORDERED: PANTOPRAZOLE 40MG TAB (PROTONIX) PO ONE (11:00)
[2019-04-30 11:21] LABS: AMPHETAMINES LEVEL URINE NEGATIVE (NEGATIVE); BARBITURATES URINE NEGATIVE (NEGATIVE); BENZODIAZEPINES URINE NEGATIVE (NEGATIVE); CANNABINOIDS URINE NEGATIVE (NEGATIVE); COCAINE METABOLITE URINE NEGATIVE (NEGATIVE); METHADONE URINE NEGATIVE (NEGATIVE); OPIATES URINE NEGATIVE (NEGATIVE); PHENCYCLIDINE URINE NEGATIVE (NEGATIVE)
[2019-04-30] MEDS ORDERED: ONDANSETRON 4 MG TAB (S0181) PO ONE (16:00)
[2019-04-30] MEDS ORDERED: OXAZEPAM 15 MG CAP PO ONE ×2 (18:15→22:00)
[2019-04-30] MEDS ORDERED: ONDANSETRON 4 MG ORAL DISINTEGRATING TAB (Q0162 PER 1MG) PO ONE (20:45)
[2019-04-30] MEDS ORDERED: LORazepam 2 MG TAB PO ONE (22:00)
[2019-04-30] MEDS ORDERED: MOM 30ML SUSPENSION UDC PO PRN (22:30)
[2019-04-30] MEDS ORDERED: MAALOX 30 ML SUSP *UDC PO PRN (22:30)
[2019-04-30] MEDS ORDERED: LEXA5TAB13 PO (22:50)
[2019-04-30] MEDS ORDERED: THIA100T7 PO (22:50)
[2019-04-30] MEDS ORDERED: HYDR50TA70 PO (22:50)
[2019-04-30] MEDS ORDERED: ONDA8TAB8 PO (22:50)
[2019-04-30] MEDS ORDERED: PROT1TAB2 PO (22:50)
[2019-04-30] MEDS ORDERED: AMLO5TAB6 PO (22:50)
[2019-04-30] MEDS ORDERED: FERR1TAB8 PO (22:51)
[2019-04-30] MEDS ORDERED: OMEG1CAP4 PO (22:51)
[2019-04-30] MEDS ORDERED: CLIN150C14 PO (22:51)
[2019-04-30 23:34] VITALS: BP 143/94
[2019-05-01] VITALS (10 sets, daily range): BP systolic 118–143; BP diastolic 87–96
[2019-05-01] MEDS: LORazepam 2 MG TAB PO PRN ×4 (07:04→19:40)
[2019-05-01] MEDS: MULTIVITAMINS/MINERALS THERAP 1 TAB PO SCH (08:25)
[2019-05-01] MEDS: FOLIC ACID 1 MG TAB PO SCH (08:25)
[2019-05-01] MEDS: THIAMINE 100 MG TAB PO SCH ×2 (08:25→21:06)
--- NOTE | 2019-05-01 10:14 | MHHPEPDOC ---
General Date Of Admission: Apr 30, 2019 Legal Status: 9.39 Chief Complaint "I ws just drunk and it was all blown out of proportion" History of Present Illness HISTORY OF THE PRESENT ILLNESS: Patient is a 33 -year-old , female, with a history on severe alcohol use d/o who was brought to ED on a 9.41 by police after pt's called them stating by had a loaded .22 caliber rifle and was threatening to kill them both while heavily intoxicated (0.400 bal in ED). Pt's rifle was confiscated by [facility] per ED. In the ED pt endorsed daily alcohol use 1/5 and a half daily of "vodka" for a significant amount of time. Per ED, pt was minimizing the incident that brought her to the hospital, denied any current stressors, and requesting to be d/c. Psychiatric Review of Systems Depression (2 or more weeks): feelings of excess/guilt (excess), suicidal thoughts [place] (4 or more days of): denies Psychosis: denies PTSD: denies Anxiety: situational anxiety, stressor related anxiety Anxiety/ 6 months or more of: irritability Past Psychiatric History Previous Psychiatric Diagnosis: alcohol use d/o severe Previous Psychiatric Admissions: Per ED recently admitted to [place] s/p OD possible on alcohol Suicide Attempts: denies Psychiatric Follow-up: pt states she's attempted to get into outpatient subst ance abuse treatment Psychiatric medications: vistaril 50mg tid prn anxiety Past Medical History Medical Problems 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 Head Injury: No Seizures: No Hospitalizations: Yes Surgeries: No Family Medical/Psychiatric HX Medical Problems noncontributory Psychiatric Disorders: No Addiction: No Suicide Attemps/Completions: No Addiction History nicotine, alcohol (1/5 and a half of vodka dailly, bal 0.400 on admission), other (utox neg) Social History Childhood: born and raised in the [facility], 2 parent home with siblings, mostly a good childhood Abuse/Trauma:denied Current Living Situation: lives with in [place] Education: high school grad Employment: unemployed, support by Social Support: Legal: denies Marital: homosexual, no kids Mental Status Examination General Appearance: well groomed, appears stated age, hospital scubs/clothing Build: overweight Demeanor: very figety (and trembling) Eye Contact: average Activity: anxious Behavior: cooperative, restless (and tremulous) Speech: clear, normal volume, reg/rate,rhythm,volume Mood: euthymic, anxious Mood "fine" Affect: constricted, appropriate, anxious Thought Process: logical/linear, intact Thought Content (Delusions): none reported, denies SI, HI, AVH Thought Content (Other): none reported, appropriate Thought Content (Aggressive): none reported Perception (Hallucinations): none reported Perception (Other): none reported Cognition (Impairment of): none reported Cognition(Intelligence Est.): average Oriented: Awake, Alert, Oriented times three Insight: fair Judgment: Fair Psychosis: Denies Diagnoses Substance induced mood d/o secondary alcohol use alcohol use d/o severe A-FIB/CHADSVASC A-FIB History Current/History of A-Fib/PAF?: No Assessment Pt seen during treatment team stating she and her got into a fight which is normal for them when she was heavily intoxication with alcohol (bal 0.400 in ED) and she grabbed a loaded gun that the police confiscated threatening to harm both of them due to her extreme intoxication. Now that pt is sober she states she had and has no desire to harm herself or her spouse and only grabbed the gun due to her heavy intoxication on alcohol. She admits to drinking 1/5 and a half of vodka daily for a long period of time but has just started reaching out to outpatient substance abuse treatments centers for help with her alcohol abuse. Pt states her only desire is to go home as she feels anxious being here. Pt did require an ativan at 7am this morning for alcohol withdrawal and when seen in treatment team she appeared anxious with minor had tremors when signing paperwork yet denied she was experiencing alcohol withdrawal and was only "anxious." Pt appears to be attempting her alcohol withdrawal symptoms due to her desire to go home soon but most likely she will not be capable of doing such due to residential heavy alcohol use. Pt highly encouraged to go to groups during her stay as she had stated she just wanted to lay in bed until she was discharged. Pt denies SI/HI, hallucinations, delusions. Feels safe here. Initial Treatment Plan 1. Patient was admitted on a 9.39 status. 2. Complete history was obtained. 3. With patients permission, family will be contacted and database will be expanded. 4. Patients medication regimen will be reviewed and changed accordingly. 5. Patient will be provided with protected environment. 6. Patient will be treated with individual, group, and milieu therapies. 7. Patient will receive supportive psych-education. 8. Discharge planning will commence immediately. 9. Outpatient follow-up treatment will be strongly recommended. 10. The initial treatment plan will focus initially on: * Depression. * Risk for suicide. 11. [facility] protocol for alcohol withdrawal ESTIMATED LENGTH OF STAY: 3-5 DAYS. TIME SPENT COUNSELING AND COORDINATING INITIAL CARE: 60 minutes. Vital Signs Vital Signs Date Time Temp Pulse Resp B/P (MAP) Pulse Ox O2 Delivery O2 Flow Rate FiO2 05/01/19 07:44 109 141/96 05/01/19 06:26 99.1 18 04/30/19 20:55 98 Room Air Laboratory Data 24H Labs Laboratory Tests 2 04/30/19 10:39: Urine Opiates Screen NEGATIVE, Urine Methadone Screen NEGATIVE, Urine Barbiturates Screen NEGATIVE, Urine Phencyclidine Screen NEGATIVE, Urine Amphetamines Screen NEGATIVE, Urine Benzodiazepines Screen NEGATIVE, Urine Cocaine Metabolite Screen NEGATIVE, Urine Cannabinoids Screen NEGATIVE Medications Scheduled Amlodipine Besylate (Amlodipine Besylate) 5 Mg Tablet, 5 MG PO DAILY, (Reported) Clindamycin Hcl (Clindamycin HCl) 150 Mg Capsule, 300 MG PO Q8H, (Reported) Escitalopram Oxalate (Lexapro) 5 Mg Tablet, 5 MG PO DAILY, (Reported) Ferrous Sulfate (Ferrous Sulfate) 325 Mg Tablet, 325 MG PO DAILY, (Reported) [place]-3 Acid Ethyl Esters ([place]-3 Acid Ethyl Esters) 1 Gm Capsule, 2 CAP PO BID, (Reported) Pantoprazole Sodium (Protonix) 40 Mg Tablet.dr, 40 MG PO DAILY, (Reported) Thiamine HCl (Thiamine HCl) 100 Mg Tablet, 100 MG PO BID, (Reported) Scheduled PRN Hydroxyzine HCl (Hydroxyzine HCl) 50 Mg Tablet, 50 MG PO QID PRN for ANXIETY, (Reported) Ondansetron (Ondansetron Odt) 8 Mg Tab.rapdis, 8 MG PO TID PRN for ANXIETY, (Reported) Allergies Coded Allergies: Sulfa (Sulfonamide Antibiotics) (Verified Allergy, Intermediate, 06/25/18) amoxicillin (Verified Allergy, Intermediate, 06/25/18) clavulanic acid (Verified Allergy, Intermediate, 06/25/18) Penicillins (Unverified Allergy, Unknown, 05/01/19) azithromycin (Unverified Allergy, Unknown, 05/01/19) lisinopril (Unverified Allergy, Unknown, 05/01/19) prednisone (Unverified Allergy, Unknown, 05/01/19) sulfamethoxazole (Unverified Allergy, Unknown, 05/01/19) trimethoprim (Unverified Allergy, Unknown, 05/01/19) GRECIA LENNON DO May 01, 2019 10:14 am
[2019-05-01] MEDS: PANTOPRAZOLE 40MG TAB (PROTONIX) PO SCH (11:16)
[2019-05-01] MEDS: FERROUS SULFATE 325MG TAB PO SCH (11:16)
[2019-05-01] MEDS: amLODIPine 5 MG TAB PO SCH (11:16)
--- NOTE | 2019-05-01 12:56 | HPEPDOC ---
General Date of Admission Apr 30, 2019 at 22:16 Date of Service: May 01, 2019 Chief Complaint The patient is a 33-year-old female admitted with a reason for visit of Alcohol Use Disorder. Source: Patient Exam Limitations: No limitations Associated Symptoms: Denies Symptoms History of Present Illness Mrs. Luque is a 33-year-old female who was admitted to the behavioral health unit secondary to alcohol abuse disorder and suicidal ideation. Patient reported that she had been drunk, in an argument with her when she threatened "something with a gun." Patient stated at the time she didn't even know where the gun was; she has denied any SI and HI at this time. Patient does report a history of alcohol abuse. She drinks up to a third of a bottle of vodka each day. Prior to admission, her PCP had referred her for inpatient alcohol abuse treatment/rehabilitation. She will be going to that facility as soon as she is discharged from this hospital. She stated she has never been to rehabilitation before. She is also currently being treated for a tooth infection by her PCP. Home Medications Scheduled Amlodipine Besylate (Amlodipine Besylate) 5 Mg Tablet, 5 MG PO DAILY, (Reported) Clindamycin Hcl (Clindamycin HCl) 150 Mg Capsule, 300 MG PO Q8H, (Reported) Escitalopram Oxalate (Lexapro) 5 Mg Tablet, 5 MG PO DAILY, (Reported) Ferrous Sulfate (Ferrous Sulfate) 325 Mg Tablet, 325 MG PO DAILY, (Reported) [place]-3 Acid Ethyl Esters ([place]-3 Acid Ethyl Esters) 1 Gm Capsule, 2 CAP PO BID, (Reported) Pantoprazole Sodium (Protonix) 40 Mg Tablet.dr, 40 MG PO DAILY, (Reported) Thiamine HCl (Thiamine HCl) 100 Mg Tablet, 100 MG PO BID, (Reported) Scheduled PRN Hydroxyzine HCl (Hydroxyzine HCl) 50 Mg Tablet, 50 MG PO QID PRN for ANXIETY, (Reported) Ondansetron (Ondansetron Odt) 8 Mg Tab.rapdis, 8 MG PO TID PRN for ANXIETY, (Reported) Allergies Coded Allergies: Sulfa (Sulfonamide Antibiotics) (Verified Allergy, Intermediate, 06/25/18) amoxicillin (Verified Allergy, Intermediate, 06/25/18) clavulanic acid (Verified Allergy, Intermediate, 06/25/18) Penicillins (Unverified Allergy, Unknown, 05/01/19) azithromycin (Unverified Allergy, Unknown, 05/01/19) lisinopril (Unverified Allergy, Unknown, 05/01/19) prednisone (Unverified Allergy, Unknown, 05/01/19) sulfamethoxazole (Unverified Allergy, Unknown, 05/01/19) trimethoprim (Unverified Allergy, Unknown, 05/01/19) Past Medical History Medical History Alcohol abuse. Hypertension. Chronic pancreatitis. Surgical History Remote history of appendectomy Family History Significant Family History: Cancer (father, deceasedcancer, unknown), Heart disease (mother), Other (Brotheralcoholism) Social History * Smoker: Denies Alcohol: heavy (see HPI) Drugs: marijuana A-FIB/CHADSVASC A-FIB History Current/History of A-Fib/PAF?: No Current PO Anticoag Therapy: No Review of Systems Constitutional: Denies: Chills, Fever, Night Sweats Eyes: Denies: Pain ENT: Denies: Head Aches Skin: Denies: Rash Pulmonary: Denies: Dyspnea, Cough Cardiovascular: Denies: Chest Pain, Palpitations, Edema Gastrointestinal: Denies: Nausea, Vomiting, Abdominal Pain, Diarrhea, Constipation Genitourinary: Denies: Dysuria Hematologic: Reports: Bleeding Excessively; Denies: Bruising Musculoskeletal: Denies: Neck Pain, Back Pain, Joint Pain, Muscle Pain, Spasms Neurological: Denies: Weakness, Numbness Psych: Reports: Depression, Thoughts of Self Harm, Thoughts of Harming Other; Denies: Memory Issues Physical Examination General Exam: Positive: Alert, No Acute Distress Eye Exam: Positive: PERRLA, Conjunctiva & lids normal, EOMI; Negative: Sclera icteric ENT Exam: Positive: Atraumatic, Mucous membr. moist/pink, Pharynx Normal Neck Exam: Positive: Supple; Negative: thyromegaly Chest Exam: Positive: Clear to auscultation, Normal air movement Heart Exam: Positive: Rate Normal, Regular Rhythm, Normal S1, Normal S2; Negative: Murmurs, Rubs Telemetry: Positive: No significant arrhythmia Abdomen Exam: Positive: Normal bowel sounds, Soft; Negative: Tenderness Extremity Exam: Positive: Normal pulses; Negative: Clubbing, Cyanosis, Edema Skin Exam: Positive: Nl turgor and temperature Neuro Exam: Positive: Normal Gait, Normal Speech, Strength at 5/5 X4 ext, Cranial Nerves 3-12 NL Psych Exam: Negative: Mood NL (appears very sad, almost tearful) Vital Signs Vital Signs Date Time Temp Pulse Resp B/P (MAP) Pulse Ox O2 Delivery O2 Flow Rate FiO2 05/01/19 11:16 106 141/93 05/01/19 06:26 99.1 18 04/30/19 20:55 98 Room Air Assessment/Plan Mrs. Luque is a 33-year-old female who was admitted to the behavioral health unit secondary to alcohol abuse disorder and suicidal ideation. Patient reported that she had been drunk, in an argument with her when she threatened "something with a gun." Patient stated at the time she didn't even know where the gun was; she has denied any SI and HI at this time. Patient does report a history of alcohol abuse. She drinks up to a third of a bottle of vodka each day. Prior to admission, she had made arrangements for alcohol abuse treatment/rehabilitation. She will be going to that facility as soon as she is discharged from this hospital. She stated she has never been to rehabilitation before. Patient's past medical history includes: Alcohol abuse, Hypertension, Chronic pancreatitis. Alcohol abuse disorder/depression with suicidal ideation. [facility] protocol in place Patient is expected to go to alcohol rehabilitation upon discharge Continued management per psychiatry #2. Chronic pancreatitis No indication for acute intervention #3. Hypertension. Continue amlodipine. #4 Dental infection. Continue clindamycin as prescribed Medicine will sign off on this patient at this time. Please feel free to re-cons ult as needed. Plan / VTE VTE Prophylaxis Ordered?: No ANGELA CAMPO PA-C May 01, 2019 12:56
[2019-05-01] MEDS: CLINDAMYCIN 150 MG CAP PO SCH ×2 (13:14→21:07)
[2019-05-01] MEDS: traZODone 50 MG TAB PO PRN ×2 (21:06)
[2019-05-02] VITALS (9 sets, daily range): BP systolic 130–147; BP diastolic 88–97
[2019-05-02] MEDS: CLINDAMYCIN 150 MG CAP PO SCH ×3 (05:42→21:00)
[2019-05-02] MEDS: FOLIC ACID 1 MG TAB PO SCH (08:12)
[2019-05-02] MEDS: FERROUS SULFATE 325MG TAB PO SCH (08:12)
[2019-05-02] MEDS: THIAMINE 100 MG TAB PO SCH ×2 (08:12→21:00)
[2019-05-02] MEDS: MULTIVITAMINS/MINERALS THERAP 1 TAB PO SCH (08:12)
[2019-05-02] MEDS: amLODIPine 5 MG TAB PO SCH (08:12)
[2019-05-02] MEDS: PANTOPRAZOLE 40MG TAB (PROTONIX) PO SCH (08:12)
--- NOTE | 2019-05-02 09:08 | MHIPNPDOC ---
[facility] Progress Note Progress Note DATE OF SERVICE: 05/02/19 HISTORY: Patient is a 33 -year-old , female, with a history on severe alcohol use d/o who was brought to ED on a 9.41 by police after pt's called them stating by had a loaded .22 caliber rifle and was threatening to kill them both while heavily intoxicated (0.400 bal in ED). Pt's rifle was confiscated by [facility] per ED. In the ED pt endorsed daily alcohol use 1/5 and a half daily of "vodka" for a significant amount of time. Per ED, pt was minimizing the incident that brought her to the hospital, denied any current stressors, and requesting to be d/c. Pt seen during treatment team stating she and her got into a fight which is normal for them when she was heavily intoxication with alcohol (bal 0.400 in ED) and she grabbed a loaded gun that the police confiscated threatening to harm both of them due to her extreme intoxication. Now that pt is sober she states she had and has no desire to harm herself or her spouse and only grabbed the gun due to her heavy intoxication on alcohol. She admits to drinking 1/5 and a half of vodka daily for a long period of time but has just started reaching out to outpatient substance abuse treatments centers for help with her alcohol abuse. Pt states her only desire is to go home as she feels anxious being here. Pt did require an ativan at 7am this morning for alcohol withdrawal and when seen in treatment team she appeared anxious with minor had tremors when signing paperwork yet denied she was experiencing alcohol withdrawal and was only "anxious." Pt appears to be attempting her alcohol withdrawal symptoms due to her desire to go home soon but most likely she will not be capable of doing such due to long-term heavy alcohol use. Pt highly encouraged to go to groups during her stay as she had stated she just wanted to lay in bed until she was discharged. Pt denies SI/HI, hallucinations, delusions. Feels safe here. VITAL SIGNS: See below. NEW TEST RESULTS: See below. CURRENT MEDICATIONS: See below. MENTAL STATUS EXAMINATION: General Appearance: well groomed, appears stated age, own/clothing Build: overweight Demeanor: cooperative, calm Eye Contact: average Activity: anxious Behavior: cooperative Speech: clear, normal volume, reg/rate,rhythm,volume Mood: euthymic Mood "good" Affect: full range, appropriate, anxious Thought Process: logical/linear, intact Thought Content (Delusions): none reported, denies SI, HI, AVH Thought Content (Other): none reported, appropriate Thought Content (Aggressive): none reported Perception (Hallucinations): none reported Perception (Other): none reported Cognition (Impairment of): none reported Cognition(Intelligence Est.): average Oriented: Awake, Alert, Oriented times three Insight: fair Judgment: Fair Psychosis: Denies DIAGNOSES: Substance induced mood d/o secondary alcohol use alcohol use d/o severe ASSESSMENT:Pt seen and states that her mood is "good" and that her alcohol withdrawal is improving. Last required ativan for alcohol withdrawal at 19:40 yesterday. Advised will continue to see how she does today and may be able to d/c her home tomorrow if she is able to go 24hrs without ativan for alcohol withdrawal. Pt is hopeful to d/c home tomorrow. States she slept well last night. She is attending groups and finding them helpful, states "they're fun". She denies SI/HI, hallucinations, delusions. Pt feels safe here. MANAGEMENT PLAN: continue plan [facility] protocol for alcohol withdrawal TIME SPENT: 30 minutes. Vital Signs Vital Signs Date Time Temp Pulse Resp B/P (MAP) Pulse Ox O2 Delivery O2 Flow Rate FiO2 05/02/19 08:14 91 147/96 05/02/19 06:31 98.4 18 05/01/19 17:02 99 Room Air Current Medications Current Medications Medications (Trade) Dose Ordered Sig/Segun Route PRN Reason Start Time Stop Time Status Last Admin Dose Admin Al Hydrox/Mg Hydrox/Simethicone (Mylanta) 30 ml Q4HP PRN PO HEARTBURN/INDIGESTION 04/30/19 22:30 Amlodipine Besylate (Norvasc) 5 mg DAILY PO 05/01/19 09:00 05/02/19 08:12 Clindamycin HCl (Cleocin) 300 mg Q8H PO 05/01/19 14:00 05/02/19 05:42 Ferrous Sulfate (Ferrous Sulfate) 325 mg DAILY PO 05/01/19 09:00 05/02/19 08:12 Folic Acid (Folic Acid) 1 mg DAILY PO 05/01/19 09:00 05/02/19 08:12 Home Med (Med Rec Complete!) ASDIRECTED XX 04/30/19 23:00 04/30/19 22:54 DC Lorazepam (Ativan) 2 mg ASDIRECTED PRN PO SEE PROTOCOL 04/30/19 22:30 05/01/19 19:40 Magnesium Hydroxide (Milk Of Magnesia) 30 ml DAILYPRN PRN PO CONSTIPATION 04/30/19 22:30 Multivitamins (Theragram-M) 1 tab DAILY PO 05/01/19 09:00 05/02/19 08:12 Pantoprazole Sodium (Protonix) 40 mg DAILY PO 05/01/19 09:00 05/02/19 08:12 Thiamine HCl (Thiamine HCl) 100 mg BID PO 05/01/19 09:00 05/04/19 08:59 05/02/19 08:12 Trazodone HCl (Desyrel) 50 mg QHSP PRN PO INSOMNIA 04/30/19 22:30 05/01/19 21:06 Allergies Coded Allergies: Sulfa (Sulfonamide Antibiotics) (Verified Allergy, Intermediate, 06/25/18) amoxicillin (Verified Allergy, Intermediate, 06/25/18) clavulanic acid (Verified Allergy, Intermediate, 06/25/18) Penicillins (Unverified Allergy, Unknown, 05/01/19) azithromycin (Unverified Allergy, Unknown, 05/01/19) lisinopril (Unverified Allergy, Unknown, 05/01/19) prednisone (Unverified Allergy, Unknown, 05/01/19) sulfamethoxazole (Unverified Allergy, Unknown, 05/01/19) trimethoprim (Unverified Allergy, Unknown, 05/01/19) GRECIA LENNON DO May 02, 2019 9:08 am
[2019-05-02] MEDS: traZODone 50 MG TAB PO PRN (21:02)
[2019-05-03] MEDS: CLINDAMYCIN 150 MG CAP PO SCH (05:52)
[2019-05-03 06:33] VITALS: BP 140/98
[2019-05-03 07:50] VITALS: BP 140/98
[2019-05-03] MEDS: FOLIC ACID 1 MG TAB PO SCH (08:10)
[2019-05-03] MEDS: THIAMINE 100 MG TAB PO SCH (08:10)
[2019-05-03] MEDS: MULTIVITAMINS/MINERALS THERAP 1 TAB PO SCH (08:10)
[2019-05-03] MEDS: FERROUS SULFATE 325MG TAB PO SCH (08:10)
[2019-05-03] MEDS: PANTOPRAZOLE 40MG TAB (PROTONIX) PO SCH (08:10)
[2019-05-03 08:11] VITALS: BP 138/94
[2019-05-03] MEDS: amLODIPine 5 MG TAB PO SCH (08:11)
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
== END 2019-05-03 11:20 | disposition home or self-care (01) | DRG 775 ==
LOC: M ED 07:47 → M ED INP 22:16 → M PSY 23:07
PROVIDERS: ADMIT Psychiatry & Neurology Psychiatry; ATTEND Psychiatry & Neurology Psychiatry
DX: F10.24 Alcohol dependence with alcohol-induced mood disorder (principal); K86.0 Alcohol-induced chronic pancreatitis; Z79.899 Other long term (current) drug therapy; Z88.1 Allergy status to other antibiotic agents; Z88.0 Allergy status to penicillin; Z88.2 Allergy status to sulfonamides; Z88.8 Allergy status to other drugs, medicaments and biological substances; R45.851 Suicidal ideations; F10.229 Alcohol dependence with intoxication, unspecified; F10.239 Alcohol dependence with withdrawal, unspecified

== ENCOUNTER 2022-07-26 19:45 | Emergency (ER) | payer OTHER ==
[~2022-07-26] VITALS: Ht 162.6 cm; Wt 79.2 kg
[2022-07-26 19:45] VITALS: TEMP 97.8
[~2022-07-26 19:45] MED LIST changes: +AMLO1TAB24; +AMLO1TAB24 PO; +CLIN150C17 PO; +FERR1TAB8 PO; +HYDR50TA70; +HYDR50TA70 PO; +LEXA5TAB13; +LEXA5TAB13 PO; +OMEG1CAP85 PO; +ONDA8TAB8 PO; +PANT40TA29; +PROT1TAB2 PO; +THIA100T7 PO; +VITA100T28
[2022-07-26] MEDS ORDERED: NS 1,000 ML IV ONE (22:40)
[2022-07-26] MEDS ORDERED: PROMETHAZINE 25MG/ML 1ML VIAL IV ONE (22:40)
[2022-07-26 23:10] LABS: BASO # 0.1 10^3/uL (0.0-0.2); BASO % 0.5 % (0.0-1.0); EOS # 0.1 10^3/uL (0.0-0.5); EOS % 0.3 % (0.0-3.0); HEMATOCRIT 35.6 % (36.0-47.0); HEMOGLOBIN 12.6 g/dl (12.0-15.5); LYMPH # 2.8 10^3/uL (1.5-5.0); LYMPH % 12.8 % (24.0-44.0); MEAN CORPUSCULAR HEMOGLOBIN 32.6 pg (27.0-33.0); MEAN CORPUSCULAR HGB CONC 35.4 g/dl (32.0-36.5); MONO # 1.3 10^3/uL (0.0-0.8); MONO % 5.7 % (2.0-8.0); NEUTROPHILS # 17.9 10^3/uL (1.5-8.5); NEUTROPHILS % 80.1 % (36.0-66.0); PLATELET COUNT, AUTOMATED 267 10^3/uL (150-450); RED BLOOD COUNT 3.87 10^6/uL (4.00-5.40); WHITE BLOOD COUNT 22.3 10^3/uL (4.0-10.0)
[2022-07-26 23:15] LABS: LIPASE 24 U/L (12-53)
[2022-07-26 23:17] LABS: ALBUMIN 4.2 G/DL (3.2-5.2); ALKALINE PHOSPHATASE 64 U/L (46-116); ALT/SGPT 29 U/L (7.0-40); AST/SGOT 21 U/L (<34); BILIRUBIN,TOTAL 0.7 MG/DL (0.3-1.2); BLOOD UREA NITROGEN 18 MG/DL (9-23); CALCIUM LEVEL 10.4 MG/DL (8.5-10.1); CARBON DIOXIDE LEVEL 23 MMOL/L (20-31); CHLORIDE LEVEL 100 MMOL/L (98-107); CREATININE FOR GFR 0.76 MG/DL (0.55-1.30); GLOMERULAR FILTRATION RATE > 60.0 (>60); GLUCOSE, FASTING 93 MG/DL (60-100); POTASSIUM SERUM 3.9 MMOL/L (3.5-5.1); SODIUM LEVEL 137 MMOL/L (136-145); TOTAL PROTEIN 7.7 G/DL (5.7-8.2)
[2022-07-26] MEDS ORDERED: PANTOPRAZOLE 40MG VIAL IV ONE (23:20)
[2022-07-26] MEDS ORDERED: MORPHINE 4 MG/ML 1ML VIAL IV ONE (23:20)
[2022-07-26] MEDS ORDERED: MAALOX 30 ML SUSP *UDC PO ONE (23:20)
[2022-07-26] MEDS ORDERED: HYOSCYAMINE SULFATE 0.125 MG SUBL TABLET PO ONE (23:20)
[2022-07-26] MEDS ORDERED: SUCRALFATE 1 GM TAB PO ONE (23:20)
[2022-07-26 23:33] VITALS: BP 133/73
[2022-07-26 23:34] LABS: HCG, SERUM QUALITATIVE NEGATIVE (NEGATIVE)
[2022-07-26] MEDS ORDERED: ISOVUE-370 76% 100ML VIAL As Ordered ONE (23:37)
[2022-07-26 23:52] VITALS: O2SAT 96
[2022-07-27] MEDS ORDERED: CARA1TAB6 PO (01:56)
[2022-07-27] MEDS ORDERED: FAMO20TA PO (01:56)
[2022-07-27] MEDS ORDERED: ONDA4TAB6 PO (01:56)
== END 2022-07-27 02:07 | disposition home or self-care (01) ==
LOC: M ED 19:45
DX: R10.13 Epigastric pain (principal); K29.70 Gastritis, unspecified, without bleeding; N83.291 Other ovarian cyst, right side; R16.0 Hepatomegaly, not elsewhere classified; I10 Essential (primary) hypertension; Z87.19 Personal history of other diseases of the digestive system; F17.200 Nicotine dependence, unspecified, uncomplicated; Z79.899 Other long term (current) drug therapy; Z88.0 Allergy status to penicillin; Z88.2 Allergy status to sulfonamides; Z88.1 Allergy status to other antibiotic agents; Z88.8 Allergy status to other drugs, medicaments and biological substances
CPT/HCPCS: 36415; 74177; 80053; 83690; 84703; 85025; 96374; 96375; 99284; C9113; J2550; Q9967

== ENCOUNTER 2022-08-10 03:06 | Emergency (ER) | payer OTHER ==
[~2022-08-10 03:06] MED LIST changes: +CARA1TAB6 PO; +FAMO20TA PO; +ONDA4TAB6 PO
[2022-08-10 03:13] VITALS: TEMP 98
[2022-08-10 03:16] VITALS: BP 116/76; O2SAT 97
[2022-08-10] MEDS ORDERED: LIDOCAINE 2% W/EPINEPHRINE 20ML VIAL **PRES FREE As Ordered ONE (03:29)
[2022-08-10] MEDS ORDERED: LIDOCAINE 2% W/EPINEPHRINE 20ML VIAL **PRES FREE INJ ONE (03:30)
== END 2022-08-10 03:31 | disposition left against medical advice (07) ==
LOC: M ED 03:06
DX: Z53.21 Procedure and treatment not carried out due to patient leaving prior to being seen by health care provider (principal)

== ENCOUNTER 2024-02-09 03:09 | Inpatient (IN) | payer OTHER ==
[~2024-02-09] VITALS: Ht 162.6 cm; Wt 82.0 kg
[~2024-02-09 03:09] MED LIST changes: +OMEG-28 PO; -OMEG1CAP85 PO; +ONDA-282 PO; +ONDA-284; +ONDA-284 PO; -ONDA4TAB6 PO; -ONDA8TAB8; -ONDA8TAB8 PO
[2024-02-09] MEDS ORDERED: LEVO1TAB40 (03:20)
[2024-02-09] MEDS ORDERED: OXYC1TAB23 PO (03:20)
[2024-02-09 04:20] LABS: BASO # 0.1 10^3/uL (0.0-0.2); BASO % 0.6 % (0.0-1.0); EOS % 0.1 % (0.0-3.0); HEMATOCRIT 24.2 % (36.0-47.0); LYMPH # 1.2 10^3/uL (1.5-5.0); LYMPH % 7.7 % (24.0-44.0); MEAN CORPUSCULAR HEMOGLOBIN 26.8 pg (27.0-33.0); MEAN CORPUSCULAR HGB CONC 33.1 g/dl (32.0-36.5); MEAN CORPUSCULAR VOLUME 81.2 fl (80.0-96.0); MONO # 0.9 10^3/uL (0.0-0.8); MONO % 5.8 % (2.0-8.0); NEUTROPHILS # 12.7 10^3/uL (1.5-8.5); NEUTROPHILS % 85.5 % (36.0-66.0); PLATELET COUNT, AUTOMATED 249 10^3/uL (150-450); RED BLOOD COUNT 2.98 10^6/uL (4.00-5.40); WHITE BLOOD COUNT 14.9 10^3/uL (4.0-10.0)
[2024-02-09 04:26] LABS: BLOOD UREA NITROGEN 14 MG/DL (9-23); CALCIUM LEVEL 9.2 MG/DL (8.5-10.1); CARBON DIOXIDE LEVEL 18 MMOL/L (20-31); CHLORIDE LEVEL 100 MMOL/L (98-107); CREATININE FOR GFR 0.77 MG/DL (0.55-1.30); GLOMERULAR FILTRATION RATE > 60.0 (>60); GLUCOSE, FASTING 115 MG/DL (60-100); MAGNESIUM LEVEL 1.7 MG/DL (1.8-2.4); POTASSIUM SERUM 3.8 MMOL/L (3.5-5.1); SODIUM LEVEL 136 MMOL/L (136-145)
[2024-02-09] MEDS: ONDANSETRON 4MG 2ML VIAL IV ONE ×2 (06:46→07:47)
[2024-02-09] MEDS: NS (Normal Saline) 0.9% 1,000 ML IV ONE (06:46)
[2024-02-09 07:40] LABS: LIPASE 21 U/L (12-53)
[2024-02-09 07:42] LABS: ALBUMIN 3.6 G/DL (3.2-5.2); ALKALINE PHOSPHATASE 77 U/L (35-104); ALT/SGPT 25 U/L (7.0-40); AST/SGOT 35 U/L (<34); BILIRUBIN,DIRECT 0.4 MG/DL (<0.4); BILIRUBIN,TOTAL 1.2 MG/DL (0.3-1.2); TOTAL PROTEIN 7.5 G/DL (5.7-8.2)
[2024-02-09] MEDS: MAG SULF 1GM/100ML (MAG RUN) 1 GM in IV 1 EA IV ONE (07:47)
[2024-02-09] MEDS: MORPHINE 2 MG/ML 1ML VIAL IV ONE ×2 (07:48→09:36)
[2024-02-09 07:50] LABS: HCG, SERUM QUALITATIVE NEGATIVE (NEGATIVE)
[2024-02-09] MEDS ORDERED: ISOVUE-370 76% 100ML VIAL As Ordered ONE (08:03)
[2024-02-09] MEDS: D5W/0.45% SODIUM CHLORIDE 1,000 ML IV ONE (09:36)
[2024-02-09] MEDS ORDERED: FOLI1TAB11 PO (12:24)
[2024-02-09] MEDS ORDERED: ESSETAB4 PO (12:24)
[2024-02-09] MEDS ORDERED: B COCAP4 PO (12:24)
[2024-02-09] MEDS ORDERED: HOME MED LIST COMPLETE! XX SCH (12:25)
[2024-02-09] MEDS ORDERED: ACETAMINOPHEN 325 MG TAB PO PRN (12:35)
[2024-02-09] MEDS: NS (Normal Saline) 0.9% 1,000 ML IV SCH (13:51)
[2024-02-09] MEDS: cefTRIAXone SOD 1 GM in DEXTROSE 5% (D5W) ADV/MINI-BAG 50 ML IV SCH (13:51)
[2024-02-09] MEDS: oxyCODONE 5MG TAB PO PRN (13:57)
[2024-02-09] MEDS: ONDANSETRON 4MG 2ML VIAL IV PRN (15:04)
[2024-02-09 15:28] LABS: HEMATOCRIT 23.9 % (36.0-47.0); HEMOGLOBIN 7.5 g/dl (12.0-15.5); MEAN CORPUSCULAR HEMOGLOBIN 25.9 pg (27.0-33.0); MEAN CORPUSCULAR HGB CONC 31.4 g/dl (32.0-36.5); MEAN CORPUSCULAR VOLUME 82.4 fl (80.0-96.0); PLATELET COUNT, AUTOMATED 233 10^3/uL (150-450); WHITE BLOOD COUNT 12.1 10^3/uL (4.0-10.0)
[2024-02-09] MEDS: MORPHINE 2 MG/ML 1ML VIAL IV PRN (16:56)
[2024-02-09] MEDS: SUCRALFATE 1 GM TAB PO SCH (16:56)
[2024-02-09 17:30] VITALS: BP 162/85; TEMP 98.6; O2SAT 100
[2024-02-09] MEDS: HEPARIN SOD (PORCINE) 5000UNITS/ML 1ML VIAL/SYRINGE SC SCH (20:12)
[2024-02-09] MEDS: THIAMINE 100 MG TAB PO SCH (20:13)
[2024-02-09] MEDS: MORPHINE 4 MG/ML 1ML VIAL IV PRN (20:13)
[2024-02-09] MEDS: traZODone 25MG PER 1/2 TABLET PO SCH (20:13)
[2024-02-09 20:27] VITALS: BP 157/99; TEMP 98.8; O2SAT 100
[2024-02-09] MEDS: medroxyPROGESTERone 5MG TABLET PO SCH (21:00)
[2024-02-10] VITALS (9 sets, daily range): BP systolic 133–172; BP diastolic 72–98; TEMP 97.9–98.4; O2SAT 97–100
[2024-02-10 07:09] LABS: HEMATOCRIT 24.2 % (36.0-47.0); HEMOGLOBIN 7.5 g/dl (12.0-15.5); PLATELET COUNT, AUTOMATED 206 10^3/uL (150-450); RED BLOOD COUNT 2.88 10^6/uL (4.00-5.40); WHITE BLOOD COUNT 6.6 10^3/uL (4.0-10.0)
[2024-02-10 07:33] LABS: BLOOD UREA NITROGEN 7 MG/DL (9-23); CALCIUM LEVEL 8.9 MG/DL (8.5-10.1); CARBON DIOXIDE LEVEL 25 MMOL/L (20-31); CHLORIDE LEVEL 105 MMOL/L (98-107); CREATININE FOR GFR 0.64 MG/DL (0.55-1.30); GLOMERULAR FILTRATION RATE > 60.0 (>60); GLUCOSE, FASTING 138 MG/DL (60-100); POTASSIUM SERUM 3.4 MMOL/L (3.5-5.1); SODIUM LEVEL 139 MMOL/L (136-145)
[2024-02-10] MEDS: hydrOXYzine 50 MG TAB PO PRN (07:56)
[2024-02-10] MEDS: FOLIC ACID 1MG TAB PO SCH (08:24)
[2024-02-10] MEDS: PANTOPRAZOLE 40MG TAB (PROTONIX) PO SCH (08:24)
[2024-02-10] MEDS: VITAMIN B COMPLEX/VIT C CAP PO SCH (10:09)
[2024-02-10] MEDS: ACETAMINOPHEN 325 MG TAB PO SCH (11:24)
[2024-02-10] MEDS: oxyCODONE 5MG TAB PO PRN (12:43)
[2024-02-10 22:39] LABS: IRON (FE) 49 UG/DL (50-170); PERCENT SATURATION 11.5 % (13.2-45.0); TOTAL IRON BINDING CAPACITY 427 UG/DL (250-425)
[2024-02-10 22:42] LABS: FERRITIN 26.7 NG/ML (7.3-270.7)
[2024-02-11 04:00] VITALS: BP 111/73; TEMP 97.9; O2SAT 98
[2024-02-11 06:08] LABS: HEMATOCRIT 24.7 % (36.0-47.0); HEMOGLOBIN 7.8 g/dl (12.0-15.5); MEAN CORPUSCULAR HEMOGLOBIN 26.8 pg (27.0-33.0); MEAN CORPUSCULAR HGB CONC 31.6 g/dl (32.0-36.5); MEAN CORPUSCULAR VOLUME 84.9 fl (80.0-96.0); PLATELET COUNT, AUTOMATED 164 10^3/uL (150-450); RED BLOOD COUNT 2.91 10^6/uL (4.00-5.40); WHITE BLOOD COUNT 6.9 10^3/uL (4.0-10.0)
[2024-02-11 06:44] LABS: BLOOD UREA NITROGEN 8 MG/DL (9-23); CALCIUM LEVEL 8.9 MG/DL (8.5-10.1); CARBON DIOXIDE LEVEL 27 MMOL/L (20-31); CHLORIDE LEVEL 107 MMOL/L (98-107); CREATININE FOR GFR 0.63 MG/DL (0.55-1.30); GLOMERULAR FILTRATION RATE > 60.0 (>60); GLUCOSE, FASTING 96 MG/DL (60-100); SODIUM LEVEL 142 MMOL/L (136-145)
[2024-02-11 08:00] VITALS: BP 122/44; TEMP 97.9; O2SAT 100
[2024-02-11] MEDS: IRON POLYSAC (NIFEREX) 150 MG CAP PO SCH (10:19)
[2024-02-11 12:18] VITALS: BP 127/82; TEMP 97.7; O2SAT 95
[2024-02-11 16:00] VITALS: BP 144/86; TEMP 97.7; O2SAT 100
[2024-02-11] MEDS ORDERED: THIA100TA PO (17:54)
[2024-02-11] MEDS ORDERED: ACET-683 PO (17:54)
[2024-02-11] MEDS ORDERED: MEDR5TAB3 PO (17:54)
[2024-02-11] MEDS ORDERED: SUCR1TA PO (17:54)
[2024-02-11] MEDS ORDERED: PANT40TA29 PO (17:54)
[2024-02-11] MEDS ORDERED: TRAZ-252 PO (17:54)
[2024-02-11] MEDS ORDERED: HYDR50TA70 PO (17:54)
[2024-02-11] MEDS ORDERED: OXYC-1 PO (17:54)
[2024-02-11] MEDS ORDERED: FOLI1TAB11 PO (17:54)
[2024-02-11] MEDS ORDERED: NIFE15CA PO (17:54)
[2024-02-11] MEDS ORDERED: ONDA-282 PO (17:54)
[2024-02-11] MEDS ORDERED: B-CO1TAB14 PO (17:54)
[2024-02-11] MEDS ORDERED: NARC1SPR NARES (17:54)
[2024-02-11] MEDS: IRON SUCROSE 100MG 5ML VIAL IV ONE (18:23)
[2024-02-11] MEDS ORDERED: MIRA3350 PO (18:51)
== END 2024-02-11 22:02 | disposition home or self-care (01) | DRG 463 ==
LOC: EDBD 03:09 → M ED 03:09 → M ED INP 13:43 → M MS5PR 17:30 → OBSVTOIN 02-10 22:06
PROVIDERS: ADMIT Student in an Organized Health Care Education/Training Program; ATTEND Student in an Organized Health Care Education/Training Program
PROC: 30233N1 Transfusion of Nonautologous Red Blood Cells into Peripheral Vein, Percutaneous Approach (ICD-10-PCS; principal; 2024-02-10)
DX: N39.0 Urinary tract infection, site not specified (principal); D64.9 Anemia, unspecified; R11.2 Nausea with vomiting, unspecified; N93.9 Abnormal uterine and vaginal bleeding, unspecified; D72.829 Elevated white blood cell count, unspecified; Z79.899 Other long term (current) drug therapy; Z88.0 Allergy status to penicillin; Z88.2 Allergy status to sulfonamides; Z88.8 Allergy status to other drugs, medicaments and biological substances; Z88.1 Allergy status to other antibiotic agents; F10.10 Alcohol abuse, uncomplicated; K21.9 Gastro-esophageal reflux disease without esophagitis; F12.90 Cannabis use, unspecified, uncomplicated

== ENCOUNTER → 2024-02-19 | Outpatient (CLI) | payer OTHER ==
[~2024-02-19] MED LIST changes: +ACET-683 PO; +B COCAP4 PO; +B-CO1TAB14 PO; +ESSETAB4 PO; +FOLI1TAB11 PO; +LEVO1TAB40; +MEDR5TAB3 PO; +MIRA3350 PO; +NARC1SPR NARES; +NIFE15CA PO; +OXYC-1 PO; +OXYC1TAB23 PO; +PANT40TA29 PO; +SUCR1TA PO; +THIA100TA PO; +TRAZ-252 PO
[2024-02-19 17:49] LABS: HEMATOCRIT 31.4 % (36.0-47.0); MEAN CORPUSCULAR HEMOGLOBIN 27.2 pg (27.0-33.0); MEAN CORPUSCULAR HGB CONC 31.8 g/dl (32.0-36.5); MEAN CORPUSCULAR VOLUME 85.3 fl (80.0-96.0); PLATELET COUNT, AUTOMATED 283 10^3/uL (150-450); RED BLOOD COUNT 3.68 10^6/uL (4.00-5.40); WHITE BLOOD COUNT 9.5 10^3/uL (4.0-10.0)
== END ==
LOC: M LAB 17:15
PROVIDERS: ATTEND Student in an Organized Health Care Education/Training Program
DX: D64.9 Anemia, unspecified (principal)

== ENCOUNTER 2024-02-26 04:07 | Inpatient (IN) | payer OTHER ==
[~2024-02-26] VITALS: Ht 162.6 cm; Wt 82.9 kg
[2024-02-26 05:20] LABS: BASO # 0.1 10^3/uL (0.0-0.2); BASO % 1.8 % (0.0-1.0); EOS # 0.3 10^3/uL (0.0-0.5); EOS % 3.8 % (0.0-3.0); HEMATOCRIT 33.6 % (36.0-47.0); HEMOGLOBIN 10.6 g/dl (12.0-15.5); LYMPH # 2.7 10^3/uL (1.5-5.0); LYMPH % 34.3 % (24.0-44.0); MEAN CORPUSCULAR HEMOGLOBIN 26.5 pg (27.0-33.0); MEAN CORPUSCULAR HGB CONC 31.5 g/dl (32.0-36.5); MONO # 0.6 10^3/uL (0.0-0.8); MONO % 8.1 % (2.0-8.0); NEUTROPHILS # 4.1 10^3/uL (1.5-8.5); NEUTROPHILS % 51.7 % (36.0-66.0); PLATELET COUNT, AUTOMATED 330 10^3/uL (150-450); WHITE BLOOD COUNT 7.9 10^3/uL (4.0-10.0)
[2024-02-26 05:47] LABS: ETHYL ALCOHOL (ETHANOL) 0.298 % (0.000-0.010)
[2024-02-26 05:48] LABS: HCG, SERUM QUALITATIVE NEGATIVE (NEGATIVE)
[2024-02-26 05:49] LABS: ALBUMIN 4.1 G/DL (3.2-5.2); ALKALINE PHOSPHATASE 77 U/L (35-104); ALT/SGPT 23 U/L (7.0-40); AST/SGOT 19 U/L (<34); BILIRUBIN,DIRECT < 0.1 MG/DL (<0.4); BILIRUBIN,TOTAL 0.2 MG/DL (0.3-1.2); BLOOD UREA NITROGEN 9 MG/DL (9-23); CALCIUM LEVEL 9.2 MG/DL (8.5-10.1); CARBON DIOXIDE LEVEL 21 MMOL/L (20-31); CHLORIDE LEVEL 111 MMOL/L (98-107); CREATININE FOR GFR 0.66 MG/DL (0.55-1.30); GLOMERULAR FILTRATION RATE > 60.0 (>60); GLUCOSE, FASTING 110 MG/DL (60-100); POTASSIUM SERUM 4.4 MMOL/L (3.5-5.1); SALICYLATE LEVEL < 3.0 MG/DL (<30); SODIUM LEVEL 145 MMOL/L (136-145); TOTAL PROTEIN 8.2 G/DL (5.7-8.2)
[2024-02-26 05:51] LABS: THYROID STIMULATING HORMONE 3.207 uIU/ML (0.55-4.78)
[2024-02-26] MEDS: ONDANSETRON 4MG ORAL DISINTEGRATING TAB PO ONE (08:32)
[2024-02-26] MEDS ORDERED: ACET-683 PO (08:51)
[2024-02-26] MEDS ORDERED: KP BTAB PO (08:52)
[2024-02-26] MEDS ORDERED: FERR150C PO (08:57)
[2024-02-26] MEDS ORDERED: MEDR5TAB3 PO (08:59)
[2024-02-26] MEDS: MULTIVITAMINS/MINERALS THERAP 1 TAB PO SCH (09:00)
[2024-02-26] MEDS: FOLIC ACID 1MG TAB PO SCH (09:00)
[2024-02-26] MEDS: THIAMINE 100 MG TAB PO SCH (09:00)
[2024-02-26] MEDS ORDERED: NARC1SPR (09:00)
[2024-02-26] MEDS ORDERED: ONDA-282 PO (09:03)
[2024-02-26] MEDS ORDERED: OXYC-1 PO (09:05)
[2024-02-26] MEDS ORDERED: POLY510P14 PO (09:07)
[2024-02-26] MEDS ORDERED: PANT40TA29 PO (09:07)
[2024-02-26] MEDS ORDERED: SUCR1TA PO (09:08)
[2024-02-26] MEDS ORDERED: TRAZ-252 PO (09:10)
[2024-02-26] MEDS ORDERED: HOME MED LIST COMPLETE! XX SCH (09:15)
[2024-02-26] MEDS: NS (Normal Saline) 0.9% 1,000 ML IV ONE (09:30)
[2024-02-26] MEDS: LORazepam 2 MG TAB PO PRN (10:42)
[2024-02-26] MEDS ORDERED: ISOVUE-370 76% 100ML VIAL As Ordered ONE (10:48)
[2024-02-26 11:11] LABS: AMPHETAMINES LEVEL URINE NEGATIVE (NEGATIVE); BARBITURATES URINE NEGATIVE (NEGATIVE); CANNABINOIDS URINE NEGATIVE (NEGATIVE); COCAINE METABOLITE URINE NEGATIVE (NEGATIVE); METHADONE URINE NEGATIVE (NEGATIVE); PHENCYCLIDINE URINE NEGATIVE (NEGATIVE)
[2024-02-26 11:13] LABS: BENZODIAZEPINES URINE POSITIVE (NEGATIVE); OPIATES URINE POSITIVE (NEGATIVE)
[2024-02-26] MEDS: NALOXONE INJ 0.4MG/1ML VIAL IV STA (11:20)
[2024-02-26] MEDS: MULTIVITAMIN -ADULT INJECTION 10 ML, THIAMINE INJection 100 MG, FOLIC ACID 1 MG in NS (... IV ONE (11:21)
[2024-02-26] MEDS: LORazepam 2 MG/ML 1ML VIAL IV STA ×2 (11:30→12:19)
[2024-02-26 12:08] LABS: ABG BASE EXCESS -7.4 (-2.0-2.0); ABG HCO3 17.7 MMOL/L (22.0-26.0); ABG O2 SATURATION 95.3 % (95.0-99.0); ABG PARTIAL PRESSURE CO2 34.1 mmHg (35.0-45.0); ABG PARTIAL PRESSURE O2 82.1 mmHg (75.0-100.0); ABG STANDARD HCO3 18.4 MMOL/L. (22.0-26.0); ABG TOTAL CO2 18.7 MMOL/L (22.0-29.0); ABG pH (ARTERIAL) 7.333 UNITS (7.350-7.450)
[2024-02-26] MEDS: PANTOPRAZOLE 40MG VIAL IV ONE (12:18)
[2024-02-26] MEDS ORDERED: LORazepam 2 MG TAB PO PRN (14:15)
[2024-02-26] MEDS: ONDANSETRON 4MG 2ML VIAL IV PRN (14:29)
[2024-02-26] MEDS: NS (Normal Saline) 0.9% 1,000 ML IV SCH (14:30)
[2024-02-26] MEDS ORDERED: NALOXONE INJ 0.4MG/1ML VIAL IV PRN (14:35)
[2024-02-26] MEDS: LORazepam 2 MG/ML 1ML VIAL IV PRN (14:41)
[2024-02-26 15:02] LABS: INR 1.13; PROTHROMBIN TIME 14.8 SECONDS (12.5-14.5)
[2024-02-26 15:30] VITALS: BP 151/78
[2024-02-26 16:00] VITALS: BP 151/83; TEMP 97.8; O2SAT 99
[2024-02-26] MEDS: SUCRALFATE 1 GM TAB PO SCH (17:42)
[2024-02-26 19:10] VITALS: BP 151/83; TEMP 98.4; O2SAT 98
[2024-02-26 19:28] VITALS: BP 151/83
[2024-02-26] MEDS ORDERED: KETOROLAC 30 MG/ML 1ML VIAL IV ONE (19:55)
[2024-02-26 20:00] VITALS: O2SAT 98
[2024-02-26] MEDS: LORazepam 1 MG TAB PO STA (20:03)
[2024-02-26] MEDS: CYCLOBENZAPRINE 5MG TABLET PO ONE (20:43)
[2024-02-26] MEDS: LIDOCAINE 5% (LIDODERM) PATCH TD ONE (20:44)
[2024-02-26 23:55] VITALS: BP 150/95; TEMP 99.4; O2SAT 95
[2024-02-27] VITALS: BP 150/95
[2024-02-27] MEDS: ACETAMINOPHEN 325 MG TAB PO PRN (02:04)
[2024-02-27] MEDS: CYCLOBENZAPRINE 5MG TABLET PO ONE (03:14)
[2024-02-27] MEDS: ACETAMINOPHEN *IV* 1,000 MG in IV 1 EA IV ONE (03:15)
[2024-02-27 04:33] VITALS: BP 156/90; TEMP 98.2; O2SAT 96
[2024-02-27 04:42] VITALS: BP 156/90
[2024-02-27] MEDS: RAMELTEON 8 MG TAB (ROZEREM) PO ONE (06:05)
[2024-02-27 06:45] LABS: HEMATOCRIT 27.6 % (36.0-47.0); HEMOGLOBIN 8.8 g/dl (12.0-15.5); MEAN CORPUSCULAR HEMOGLOBIN 26.7 pg (27.0-33.0); MEAN CORPUSCULAR HGB CONC 31.9 g/dl (32.0-36.5); MEAN CORPUSCULAR VOLUME 83.9 fl (80.0-96.0); PLATELET COUNT, AUTOMATED 285 10^3/uL (150-450); RED BLOOD COUNT 3.29 10^6/uL (4.00-5.40); WHITE BLOOD COUNT 8.8 10^3/uL (4.0-10.0)
[2024-02-27 07:06] LABS: ALBUMIN 3.4 G/DL (3.2-5.2); ALKALINE PHOSPHATASE 61 U/L (35-104); ALT/SGPT 20 U/L (7.0-40); AST/SGOT 15 U/L (<34); BILIRUBIN,TOTAL 0.7 MG/DL (0.3-1.2); BLOOD UREA NITROGEN 8 MG/DL (9-23); CALCIUM LEVEL 8.4 MG/DL (8.5-10.1); CARBON DIOXIDE LEVEL 21 MMOL/L (20-31); CHLORIDE LEVEL 108 MMOL/L (98-107); CREATININE FOR GFR 0.63 MG/DL (0.55-1.30); GLOMERULAR FILTRATION RATE > 60.0 (>60); GLUCOSE, FASTING 103 MG/DL (60-100); POTASSIUM SERUM 3.6 MMOL/L (3.5-5.1); SODIUM LEVEL 140 MMOL/L (136-145); TOTAL PROTEIN 6.8 G/DL (5.7-8.2)
[2024-02-27] MEDS: MULTIVITAMIN -ADULT INJECTION 10 ML, THIAMINE INJection 100 MG, FOLIC ACID 1 MG in NS (... IV SCH (09:41)
[2024-02-27] MEDS: ENOXAPARIN 40MG/0.4ML SYRINGE (J1650 PER 10MG) SC SCH (09:42)
[2024-02-27] MEDS: PANTOPRAZOLE 40MG VIAL IV SCH (12:00)
[2024-02-27 18:35] VITALS: BP 163/73; TEMP 98; O2SAT 98
== END 2024-02-27 18:42 | disposition home or self-care (01) | DRG 812 ==
LOC: M ED 04:07 → EDBD 04:07 → M ED INP 14:05
PROVIDERS: ADMIT Internal Medicine; ATTEND Internal Medicine
DX: T40.602A Poisoning by unspecified narcotics, intentional self-harm, initial encounter (principal); G92.9 Unspecified toxic encephalopathy; K25.9 Gastric ulcer, unspecified as acute or chronic, without hemorrhage or perforation; F10.120 Alcohol abuse with intoxication, uncomplicated; F32.A Depression, unspecified; D50.9 Iron deficiency anemia, unspecified; K21.9 Gastro-esophageal reflux disease without esophagitis; F17.290 Nicotine dependence, other tobacco product, uncomplicated; F41.1 Generalized anxiety disorder; N83.209 Unspecified ovarian cyst, unspecified side; G89.29 Other chronic pain; Z79.899 Other long term (current) drug therapy; Z88.0 Allergy status to penicillin; Z88.1 Allergy status to other antibiotic agents; Z88.2 Allergy status to sulfonamides; Z88.6 Allergy status to analgesic agent; Z88.8 Allergy status to other drugs, medicaments and biological substances